=== PATIENT | male | born 1970 | race African-American/Black ===

== ENCOUNTER 2018-09-04 00:20 | Inpatient (IN) ==
[2018-09-04 01:39] LABS: Eosinophils # (auto) 0.18 K/uL (0-0.5); Eosinophils % (auto) 2.5 %; Hematocrit (blood only) 31.5 % (42-52); Hemoglobin 10.5 g/dL (14.0-18.0); Immature Granulocytes # (auto) 0.04 K/uL (0.00-0.02); Immature Granulocytes % (auto) 0.6 %; Lymphocytes # (auto) 1.51 K/uL (1.2-3.4); Lymphocytes % (auto) 21.4 %; Mean Corpuscular Hgb Conc 33.3 g/dL (32-36); Mean Corpuscular Volume 80.6 fL (80-100); Mean Platelet Volume 11.2 fL (7.4-10.4); Monocytes # (auto) 0.95 K/uL (0.11-0.59); Monocytes % (auto) 13.4 %; Neutrophils # (auto) 4.39 K/uL (1.4-6.5); Neutrophils % (auto) 62.1 %; Platelet Count 309 K/uL (130-400); RDW Coefficient of Variation 15.7 % (11.5-14.5); Red Blood Count 3.91 M/uL (4.7-6.1); White Blood Count 7.07 K/uL (4.8-10.8)
[2018-09-04 01:58] LABS: Albumin Level 2.7 gm/dl (3.4-5.0); BUN Creatinine Ratio 13.5 (10-20); Calcium 8.8 mg/dl (8.5-10.1); Creatinine Clr Calc Pharmacy 97.4 ml/min; Est GFR (African American) 73.9; Est GFR (Non-African American) 63.8; Potassium 4.7 mmol/L (3.5-5.1)
[2018-09-04 01:59] LABS: INR 1.9 (0.9-1.1); Partial Thromboplastin Ratio 1.7; Prothrombin Time 18.2 Seconds (9.0-12.0)
[2018-09-04 02:01] LABS: Albumin Globulin Ratio 0.5 (0.9-2); Bilirubin,Total 1.3 mg/dl (0.2-1); Globulin 5.3 gm/dl (2.5-4.0)
[2018-09-04 02:09] LABS: Partial Thromboplastin Time 45.8 Seconds (21.0-31.0)
--- NOTE | 2018-09-04 02:51 | Emergency Department Note ---
History of Present Illness General Chief complaint: Leg Injury/Pain Stated complaint: leg pain Source: patient Mode of arrival: ambulatory Limitations: no limitations History of Present Illness Provider Complaint: + extremity pain and + extremity swelling Onset (ago): 1 week(s) Pain Consistency: + constant Location: + right Current Pain Intensity: 7 Quality: + aching and + sharp Radiation: + none Relieving factors: + immobilization and + elevation Exacerbating factors: + weight bearing, + walking and + palpation Associated symptoms: + denies other symptoms Context: no recent travel, no history of DVT and no history of gout HPI Narrative: This 48-year-old male patient presents emergency department today via BLS ambulance for complaints of right lower extremity swelling. The swelling began last Tuesday. The patient does have an open wound on the right medial taylor which has been present for approximately 1 month. He is currently being worked up for arterial insufficiency and nonhealing wound. The patient states the extremity was not swollen or edematous until Tuesday, but has been progressively worsening. He has not had an ultrasound or CT scan, but did have a arterial Doppler study today which apparently showed findings consistent with arterial insufficiency. The patient denies any discoloration, redness, or purulent drainage. He states he is experiencing some pain and decreased sensation in the third through fifth digits on the right foot. The patient is currently on Coumadin and is taking Bactrim for the wound infection. He does not believe the wound has been cultured. He denies any recent travel, and is not a smoker. Home Medications Home Medications Medication Instructions Recorded Confirmed Type clonidine HCl 0.3 mg tablet 0.3 mg PO BID 06/13/18 09/04/18 History enalapril maleate 10 mg tablet 10 mg PO DAILY 06/13/18 09/04/18 History magnesium oxide 400 mg capsule 400 mg PO BID cap 06/13/18 09/04/18 History nortriptyline 50 mg capsule 100 mg PO HS cap 06/13/18 09/04/18 History perphenazine 4 mg tablet 4 mg PO HS tab 06/13/18 09/04/18 History sertraline 100 mg tablet 100 mg PO HS tab 06/13/18 09/04/18 History tamsulosin 0.4 mg capsule 0.4 mg PO HS cap 06/13/18 09/04/18 History warfarin 10 mg tablet 10 mg PO QPM 06/13/18 09/04/18 History warfarin 2 mg tablet 2 mg PO QPM 06/13/18 09/04/18 History atorvastatin 40 mg PO HS 09/04/18 09/04/18 History mineral oil [Mineral Oil Heavy] 30 ml PO BID 09/04/18 09/04/18 History perphenazine 8 mg PO HS 09/04/18 09/04/18 History sertraline 50 mg PO HS 09/04/18 09/04/18 History sulfamethoxazole-trimethoprim 1 tab PO BID 09/04/18 09/04/18 History [Bactrim DS] Allergies Allergy/AdvReac Type Severity Reaction Status Date / Time No Known Allergies Allergy Unverified 09/04/18 01:53 Past Med/Surg History Medical History History of pulmonary embolism (Resolved) Chronic anticoagulation (Chronic) Lumbar disc herniation (Chronic) Lumbar radiculopathy (Chronic) DVT (deep venous thrombosis) (Resolved) Gastrointestinal hemorrhage with melena (Resolved 03/31/14) Gum hemorrhage (Resolved) Low back pain (Chronic) Nasal fracture (Resolved) Anemia (Acute) Gastroesophageal reflux disease (Acute) History of CVA (cerebrovascular accident) (Acute) Hypertension (Acute) Lumbar radiculopathy, chronic (Acute) OCD (obsessive compulsive disorder) (Acute) Schizophrenia (Acute) Family History Other Family history non-contributory Social History Current Living Situation: Other Current Living Situation Comment: [facility] Feels Safe at Home: Yes Smoking Status: Never smoker Hx Alcohol Use: No Hx Substance Use: No Review of Systems A total of 10 systems reviewed and were otherwise negative Physical Exam Vital Signs: Vital Signs - 24 hr 09/04/18 00:33 09/04/18 02:46 09/04/18 04:28 Temperature 38 C H Temperature Source Oral Sepsis Recent Feve r Within 48 Hours Yes Sepsis New/Unexpla ined Change in Men rodney Status No Sepsis Action Take n by Nursing No Action Required Pulse Rate 79 Pulse Rate [Finger ] 77 75 Pulse Strength Normal Pulse Strength [Fi nger] Respiratory Rate 16 18 16 Respiratory Effort / Characteristics Non-Labored Non-Labored Sponta neous Non-Labored Sponta neous Respiratory Depth Normal Normal Normal Respiratory Patter n Regular Blood Pressure 122/72 Blood Pressure [Le ft Arm] 134/77 137/94 Blood Pressure Alexa n 88 Blood Pressure Alexa n [Left Arm] 96 108 Blood Pressure Pos ition Lying Pulse Oximetry 99 100 99 Oxygen Delivery Me thod Room Air Room Air Room Air 09/04/18 05:58 Temperature Temperature Source Sepsis Recent Feve r Within 48 Hours Sepsis New/Unexpla ined Change in Men rodney Status Sepsis Action Take n by Nursing Pulse Rate Pulse Rate [Finger ] 77 Pulse Strength Pulse Strength [Fi nger] Normal Respiratory Rate 16 Respiratory Effort / Characteristics Non-Labored Respiratory Depth Normal Respiratory Patter n Regular Blood Pressure Blood Pressure [Le ft Arm] 149/81 H Blood Pressure Alexa n Blood Pressure Alexa n [Left Arm] 103 Blood Pressure Pos ition Pulse Oximetry Oxygen Delivery Me thod Physical Exam: VITALS: Vitals are noted on the nurse's note and reviewed by myself. Vital signs stable. GENERAL: This is a 48-year-old obese black male, in no acute distress, nondiaphoretic, well-developed well-nourished. SKIN: Significant edema and induration of the posterior right calf. This measures approximately 12 cm by 5 cm. There is no erythema. There is an open wound on the anterior medial taylor with no purulent drainage or surrounding erythema. The skin was otherwise without rashes, erythema, edema, or bruising. There is no tenting of the skin. Capillary reflex less than 2 seconds. HEAD: Normocephalic atraumatic. NECK: Supple without nuchal rigidity. No lymphadenopathy. No thyromegaly. Cervical spine is nontender. No JVD. HEART: Regular rate and rhythm without murmurs gallops or rubs. LUNGS: Clear to auscultation bilaterally without wheezes, rales or rhonchi. No dullness to percussion. No retractions or accessory muscle use. ABDOMEN: Positive bowel sounds x 4. Normal tympanic percussion. Soft, nontende r, without masses or organomegaly. Watson sign negative. No guarding or rebound tenderness. MUSCULOSKELETAL: No muscle atrophy, erythema, or edema noted. Full range of motion without joint tenderness in all extremities. No tenderness to palpation. Normal gait. Strength 5/5 throughout. NEURO: Patient was alert and oriented to person place and time. Normal sensation to light and sharp touch, specifically in all of the digits of the right lower extremity. Deep tendon reflexes 2+ throughout. No focal neurological deficits. Course The patient was seen and evaluated as above. IV access obtained, labs drawn. Ultrasound performed and reviewed by myself and radiologist as above. Labs reviewed by myself. I discussed the findings with the patient at bedside. I did recommend an MRI based on ultrasound findings. MRI performed reviewed by myself and radiologist as above. I discussed the case with my attending. Initiated vancomycin and Zosyn IV. I discussed the case with Dr. Lewis, [facility] hospitalist. She requested surgical consult. Consulted with Dr. Luz, general surgery. He recommends Ortho consult. I spoke with Dr. Bhakta. He agrees to see and evaluate the patient. Advised him that Dr. Luz advised he may consult general surgery if necessary. Please see their dictation regarding ongoing management care of this patient. Administered Medications Gadobutrol (Gadavist 65ml) 13 ml IV ONCE PRN PRN Reason: Interaction Checking Stop: 09/08/18 04:11 Last Admin: 09/04/18 04:13 Dose: 13 ml Documented by: [id number] Vancomycin HCl 2,750 mg/ (Sodium Chloride) 555 mls @ 200 mls/hr IV NOW ONE Stop: 09/04/18 07:58 Last Admin: 09/04/18 05:54 Dose: 200 mls/hr Documented by: [id number] Discontinued Medications Piperacillin Sod/Tazobactam Sod (Zosyn) 4.5 gm in 120 mls @ 240 mls/hr IV NOW ONE Stop: 09/04/18 05:45 Last Infusion: 09/04/18 06:22 Dose: 0 mls/hr Documented by: [id number] Admin: 09/04/18 05:35 Dose: 240 mls/hr Documented by: [id number] Medical Decision Making Differential Diagnosis + herpes zoster, + gout, + cellulitis, + superficial thrombophlebitis, + deep venous thrombosis of upper extremity, + lower extremity edema, + deep vein thrombosis, + muscular strain, + fracture, + dislocation, + joint effusion, + infection, + soft tissue injury and + vascular compromise abscess, hematoma, necrosis, malignancy, and others Medical Records Attestation: I reviewed the patient's medical records. Home Medications Current Medication List: was personally reviewed by me Laboratory Data Attestation: I reviewed the patient's lab results. No leukocytosis, thrombocytopenia. The patient is anemic with a hemoglobin of 10.5 and hematocrit of 31.5. INR 1.9. Renal, hepatic function, and electrolytes without significant abnormality. Mild hyponatremia of 131. Lactate 0.9. Result diagrams: 09/04/18 01:20 09/04/18 01:20 Lab Results 09/04/18 09/04/18 09/04/18 Range/Units 01:20 01:20 01:20 WBC 7.07 (4.8-10.8) K/uL RBC 3.91 L (4.7-6.1) M/uL Hgb 10.5 L (14.0-18.0) g/dL Hct 31.5 L (42-52) % MCV 80.6 (80-100) fL MCH 26.9 (25-34) pg MCHC 33.3 (32-36) g/dL RDW Std Deviation 46.0 (36.4-46.3) fL RDW Coeff of Andrés 15.7 H (11.5-14.5) % Plt Count 309 (130-400) K/uL MPV 11.2 H (7.4-10.4) fL Immature Gran % (Auto) 0.6 % Neut % (Auto) 62.1 % Lymph % (Auto) 21.4 % Webb % (Auto) 13.4 % Eos % (Auto) 2.5 % Baso % (Auto) 0.0 % Immature Gran # (Auto) 0.04 H (0.00-0.02) K/uL Neut # (Auto) 4.39 (1.4-6.5) K/uL Lymph # (Auto) 1.51 (1.2-3.4) K/uL Webb # (Auto) 0.95 H (0.11-0.59) K/uL Eos # (Auto) 0.18 (0-0.5) K/uL Baso # (Auto) 0.00 (0-0.2) K/uL PT 18.2 H (9.0-12.0) Seconds INR 1.9 H (0.9-1.1) APTT 45.8 H* (21.0-31.0) Seconds PTT Ratio 1.7 Sodium 131 L (136-145) mmol/L Potassium 4.7 (3.5-5.1) mmol/L Chloride 101 (98-107) mmol/L Carbon Dioxide 27 (21-32) mmol/L Anion Gap 3.0 (3-11) BUN 18 (7-18) mg/dl Creatinine 1.32 (0.6-1.4) mg/dl Est Cr Clr Drug Dosing 97.4 ml/min Est GFR ( Amer) 73.9 Est GFR (Non-Af Amer) 63.8 BUN/Creatinine Ratio 13.5 (10-20) Glucose 89 (70-99) mg/dl Lactate (0.4-2.0) mmol/L Calcium 8.8 (8.5-10.1) mg/dl Total Bilirubin 1.3 H (0.2-1) mg/dl AST 40 H (15-37) U/L ALT 36 (12-78) U/L Alkaline Phosphatase 72 (45-117) U/L Total Protein 8.0 (6.4-8.2) gm/dl Albumin 2.7 L (3.4-5.0) gm/dl Globulin 5.3 H (2.5-4.0) gm/dl Albumin/Globulin Ratio 0.5 L (0.9-2) 09/04/18 Range/Units 01:22 WBC (4.8-10.8) K/uL RBC (4.7-6.1) M/uL Hgb (14.0-18.0) g/dL Hct (42-52) % MCV (80-100) fL MCH (25-34) pg MCHC (32-36) g/dL RDW Std Deviation (36.4-46.3) fL RDW Coeff of Andrés (11.5-14.5) % Plt Count (130-400) K/uL MPV (7.4-10.4) fL Immature Gran % (Auto) % Neut % (Auto) % Lymph % (Auto) % Webb % (Auto) % Eos % (Auto) % Baso % (Auto) % Immature Gran # (Auto) (0.00-0.02) K/uL Neut # (Auto) (1.4-6.5) K/uL Lymph # (Auto) (1.2-3.4) K/uL Webb # (Auto) (0.11-0.59) K/uL Eos # (Auto) (0-0.5) K/uL Baso # (Auto) (0-0.2) K/uL PT (9.0-12.0) Seconds INR (0.9-1.1) APTT (21.0-31.0) Seconds PTT Ratio Sodium (136-145) mmol/L Potassium (3.5-5.1) mmol/L Chloride (98-107) mmol/L Carbon Dioxide (21-32) mmol/L Anion Gap (3-11) BUN (7-18) mg/dl Creatinine (0.6-1.4) mg/dl Est Cr Clr Drug Dosing ml/min Est GFR ( Amer) Est GFR (Non-Af Amer) BUN/Creatinine Ratio (10-20) Glucose (70-99) mg/dl Lactate 0.9 (0.4-2.0) mmol/L Calcium (8.5-10.1) mg/dl Total Bilirubin (0.2-1) mg/dl AST (15-37) U/L ALT (12-78) U/L Alkaline Phosphatase (45-117) U/L Total Protein (6.4-8.2) gm/dl Albumin (3.4-5.0) gm/dl Globulin (2.5-4.0) gm/dl Albumin/Globulin Ratio (0.9-2) Imaging Data Radiologist's Impression: US VENOUS RIGHT LOWER EXTREMITY: No DVT in the right lower extremity. 12 x 5 x 10 cm complex, heterogeneous, avascular lesion/fluid collection in the right posterior calf which appears to be intramuscular. DDX hematoma, abscess, other lesion. Query mild surrounding edema. Correlate and consider follow-up/further workup, MRI if indicated. Radiologist: Elder Lewis M.D. MRI RIGHT TIB/FIB: Large cystic mass involving the medial gastrocnemius muscle with enhancing periphery. Multiple airfluid levels are seen within the cystic mass. Findings are most compatible with hematoma in the absence of any clinical concern for infection. Muscle necrosis would also be in the differential, alternatively No marrow signal alterations. Ankle tendons are unremarkable. Neurovascular structures are unremarkable. Subcutaneous edema is seen along the medial/posterior aspect of the distal lower extremity. Radiologist: Yaw Smith M.D. Study ready at 04:35 and initial results transmitted at 05:06 Blood Pressure Blood Pressure Findings: Normal blood pressure MDM Narrative This 48-year-old male patient presents emergency department today complaining of progressively worsening right lower extremity/calf edema and tenderness. The patient does have an open wound on the right lower extremity which is been present for approximately 1 month. The calf edema and tenderness has been progressively worsening over 1 week. The patient was initially febrile here in the emergency department with a temp of 38 C. He does not have a white blood cell count. Initial ultrasound performed to rule out DVT. This was negative for DVT, but concerning for a lesion/fluid collection in the right posterior calf which appears to be intramuscular. MRI performed to evaluate for pyomyositis. MRI was concerning for hematoma versus abscess. Because of the patient's wound and fever, I am highly suspicious for abscess. I discussed the case with the hospitalist, Dr. Lewis. She did agree to admit, but requested surgical consult. I contacted Dr. Luz and was told to consult with orthopedics. I consulted with Dr. Bhakta, who did agree to see and evaluate the patient. The patient was given vancomycin and Zosyn and will be further evaluated by the inpatient team. Please see their dictation regarding ongoing management care of this patient. The chart was completed utilizing [employer] Speech voice recognition software. Grammatical errors, random word insertions, pronoun errors, and incomplete sentences are an occasional consequence of this system due to software limitations, ambient noise, and hardware issues. Any formal questions or concerns about the content, text, or information contained within the body of this dictation should be directly addressed to the provider for clarification. Impression & Plan Pyomyositis Discharge Plan Visit Data Chief Complaint: Leg Injury/Pain Stated Complaint: leg pain ED Provider: Miranda Oswald ED Midlevel Provider: Tia Gil Discharge Problem: Pyomyositis Patient Disposition: Being Evaluated by Hospitalist Forms Stand Alone Forms: My [facility] Prescriptions Prescriptions: No Action clonidine HCl 0.3 mg tablet 0.3 mg PO BID RF: 0 enalapril maleate 10 mg tablet 10 mg PO DAILY RF: 0 magnesium oxide 400 mg capsule 400 mg PO BID RF: 0 nortriptyline 50 mg capsule 100 mg PO HS RF: 0 perphenazine 4 mg tablet 4 mg PO HS RF: 0 sertraline [Zoloft] 100 mg tablet 100 mg PO HS RF: 0 tamsulosin 0.4 mg capsule 0.4 mg PO HS RF: 0 warfarin 10 mg tablet 10 mg PO QPM RF: 0 warfarin [Coumadin] 2 mg tablet 2 mg PO QPM RF: 0 atorvastatin 40 mg Tablet 40 mg PO HS RF: 0 sertraline 50 mg Tablet 50 mg PO HS RF: 0 mineral oil [Mineral Oil Heavy] Oil 30 ml PO BID RF: 0 perphenazine 8 mg Tablet 8 mg PO HS RF: 0 sulfamethoxazole-trimethoprim [Bactrim DS] 800-160 mg Tablet 1 tab PO BID RF: 0 Referrals Referrals: Claudia JOHNSON [Primary Care Provider] -
[2018-09-04] MEDS ORDERED: GADOBUTROL 65ML VIAL IV PRN (04:12)
[2018-09-04] MEDS ORDERED: VANCOMYCIN CONSULT ACTIVE PRN ×2 (05:12→09:21)
[2018-09-04] MEDS ORDERED: VANCOMYCIN HCL 2,750 MG in SODIUM CHLORIDE 0.9% 500 ML IV ONE (05:12)
[2018-09-04] MEDS ORDERED: PIPERACILLIN/TAZOBACTAM 4.5 GM/120 ML BAG IV ONE (05:16)
[2018-09-04] MEDS ORDERED: PIPERACILL/TAZOBAC CONSULT ACTIVE PRN ×2 (05:16→09:21)
--- NOTE | 2018-09-04 06:31 | History & Physical Report ---
Date of Service September 04, 2018 Assessment & Plan (1) Pyomyositis: Patient with large fluid collection in right calf noted on contrast MRI - concern for hematoma vs infection/abscess. Patient is on chronic anticoagulation with Coumadin. INR is therapeutic at 1.9. Platelets normal. Patient with open wound on medial portion of right calf. Tm=38 in ER. Patient is hemodynamically stable and non-toxic in appearance. Was on Bactrim on arrival for treatment of LE wound -Admit to medical floor -Check CK, blood cultures x 2 sets -Consult Orthopedic Surgery for possible drainage or aspiration -Neurovascular checks q 4 hours -Pain control with Tylenol, OxyIR PRN -Hold PO Bactrim -Vancomycin and Zosyn for empiric coverage Present on Admission?: Yes (2) Chronic anticoagulation: Patient with history of DVT/PE, on chronic anticoagulation with Coumadin. INR = 1.9 today. ?if collection in leg is a hematoma -Hold Coumadin for now -INR q AM Present on Admission?: Yes (3) History of CVA (cerebrovascular accident): Patient with remote history of CVA. -Continue Atorvastatin (4) Hypertension: Blood pressure well controlled at present -Continue Enalapril -Continue Clonidine -Continue to monitor (5) Schizophrenia: Patient oriented and appropriate. -Continue Perphenazine -Continue Sertraline -Continue Nortriptyline qHS F/E/N - NSS at 80mL/hr x 1 bag, monitor electrolytes and replete as needed, continue PO magnesium, NPO for now in case of surgical intervention Ppx - Patient on Coumadin anticoagulation. No chemo ppx due to possible hematoma. No SCDs/TEDS due to diagnosis of arterial insufficiency Code - Full Dispo - Admit to medical floor History of Present Illness Chief Complaint: leg pain Primary Care Provider: [facility] Mera Hickman is a pleasant 48yo AA male, inmate at [facility] presenting with RLE pain. The patient states that he received a steroid injection in his back last Tuesday. On Tuesday he developed pain and swelling in his calf which progressed into Tuesday. He denies fevers/chills/nausea/vomiting/malaise. His pain is presently 7/10 located in his right calf. He has a non-healing wound on the medial portion of his calf. Also complaining of pain, numbness and tingling on the 3rd - 5th toe on his right foot. Patient denies trauma to the leg. No IVDU. No prior infection. ER Course: Vancomycin, Zosyn Allergies Allergy/AdvReac Type Severity Reaction Status Date / Time No Known Allergies Allergy Unverified 09/04/18 01:53 Home Medications Home Medications Medication Instructions Recorded Confirmed Type clonidine HCl 0.3 mg tablet 0.3 mg PO BID 06/13/18 09/04/18 History enalapril maleate 10 mg tablet 10 mg PO DAILY 06/13/18 09/04/18 History magnesium oxide 400 mg capsule 400 mg PO BID cap 06/13/18 09/04/18 History nortriptyline 50 mg capsule 100 mg PO HS cap 06/13/18 09/04/18 History perphenazine 4 mg tablet 4 mg PO HS tab 06/13/18 09/04/18 History sertraline 100 mg tablet 100 mg PO HS tab 06/13/18 09/04/18 History tamsulosin 0.4 mg capsule 0.4 mg PO HS cap 06/13/18 09/04/18 History warfarin 10 mg tablet 10 mg PO QPM 06/13/18 09/04/18 History warfarin 2 mg tablet 2 mg PO QPM 06/13/18 09/04/18 History atorvastatin 40 mg PO HS 09/04/18 09/04/18 History mineral oil [Mineral Oil Heavy] 30 ml PO BID 09/04/18 09/04/18 History perphenazine 8 mg PO HS 09/04/18 09/04/18 History sertraline 50 mg PO HS 09/04/18 09/04/18 History sulfamethoxazole-trimethoprim 1 tab PO BID 09/04/18 09/04/18 History [Bactrim DS] Past Med/Surg History Medical History History of pulmonary embolism (Resolved) Chronic anticoagulation (Chronic) Lumbar disc herniation (Chronic) Lumbar radiculopathy (Chronic) DVT (deep venous thrombosis) (Resolved) Gastrointestinal hemorrhage with melena (Resolved 03/31/14) Gum hemorrhage (Resolved) Low back pain (Chronic) Nasal fracture (Resolved) Anemia (Acute) Gastroesophageal reflux disease (Acute) History of CVA (cerebrovascular accident) (Acute) Hypertension (Acute) Lumbar radiculopathy, chronic (Acute) OCD (obsessive compulsive disorder) (Acute) Schizophrenia (Acute) Family History Other Family history non-contributory Social History Current Living Situation: Other Current Living Situation Comment: [facility] Feels Safe at Home: Yes Smoking Status: Never smoker Hx Alcohol Use: No Hx Substance Use: No Review of Systems All systems reviewed & are unremarkable except as noted in HPI & below Physical Exam Vital Signs (Past 24 Hours): Last Vital Signs Temp 38 C H 09/04/18 00:33 Pulse 77 09/04/18 05:58 Resp 16 09/04/18 05:58 BP 149/81 H 09/04/18 05:58 Pulse Ox 99 09/04/18 04:28 Physical Exam: General: obese male resting comfortably, NAD, non-toxic in appearance, AA&O x 4 Skin: warm, dry HEENT: NC/AT, PERRL, EOMI, anicteric sclera, conjunctiva without injection, external ear normal to inspection and nontender, nares patent, moist mucus membranes, dentition intact, no oropharyngeal lesions, neck supple, trachea midline, no LAD, no thyromegaly, no JVD Heart: +S1/S2, regular, no m/r/g Lungs: equal air entry bilaterally, no rales/rhonchi/wheezes Abd: +BS, soft, NT/ND, no masses/organomegaly/ascites Ext: warm, 2+ pulses in UE/LE bilaterally, no clubbing/cyanosis, thickened and shiny skin of bilateral shins, RLE with firm collection, tender to palpation, dressing in place over wound, c/d/i. Diminished sensation on 3-5th toes, strength intact Neuro: nonfocal, patient AA&O x 4, speech intact, no facial droop, moving all extremities on command with equal strength 5/5 Results & Data Laboratory Results Lab Results 09/04/18 09/04/18 09/04/18 Range/Units 01:20 01:20 01:20 WBC 7.07 (4.8-10.8) K/uL RBC 3.91 L (4.7-6.1) M/uL Hgb 10.5 L (14.0-18.0) g/dL Hct 31.5 L (42-52) % MCV 80.6 (80-100) fL MCH 26.9 (25-34) pg MCHC 33.3 (32-36) g/dL RDW Std Deviation 46.0 (36.4-46.3) fL RDW Coeff of Andrés 15.7 H (11.5-14.5) % Plt Count 309 (130-400) K/uL MPV 11.2 H (7.4-10.4) fL Immature Gran % (Auto) 0.6 % Neut % (Auto) 62.1 % Lymph % (Auto) 21.4 % [place] % (Auto) 13.4 % Eos % (Auto) 2.5 % Baso % (Auto) 0.0 % Immature Gran # (Auto) 0.04 H (0.00-0.02) K/uL Neut # (Auto) 4.39 (1.4-6.5) K/uL Lymph # (Auto) 1.51 (1.2-3.4) K/uL [place] # (Auto) 0.95 H (0.11-0.59) K/uL Eos # (Auto) 0.18 (0-0.5) K/uL Baso # (Auto) 0.00 (0-0.2) K/uL PT 18.2 H (9.0-12.0) Seconds INR 1.9 H (0.9-1.1) APTT 45.8 H* (21.0-31.0) Seconds PTT Ratio 1.7 Sodium 131 L (136-145) mmol/L Potassium 4.7 (3.5-5.1) mmol/L Chloride 101 (98-107) mmol/L Carbon Dioxide 27 (21-32) mmol/L Anion Gap 3.0 (3-11) BUN 18 (7-18) mg/dl Creatinine 1.32 (0.6-1.4) mg/dl Est Cr Clr Drug Dosing 97.4 ml/min Est GFR ( Amer) 73.9 Est GFR (Non-Af Amer) 63.8 BUN/Creatinine Ratio 13.5 (10-20) Glucose 89 (70-99) mg/dl Lactate (0.4-2.0) mmol/L Calcium 8.8 (8.5-10.1) mg/dl Total Bilirubin 1.3 H (0.2-1) mg/dl AST 40 H (15-37) U/L ALT 36 (12-78) U/L Alkaline Phosphatase 72 (45-117) U/L Total Protein 8.0 (6.4-8.2) gm/dl Albumin 2.7 L (3.4-5.0) gm/dl Globulin 5.3 H (2.5-4.0) gm/dl Albumin/Globulin Ratio 0.5 L (0.9-2) 09/04/18 Range/Units 01:22 WBC (4.8-10.8) K/uL RBC (4.7-6.1) M/uL Hgb (14.0-18.0) g/dL Hct (42-52) % MCV (80-100) fL MCH (25-34) pg MCHC (32-36) g/dL RDW Std Deviation (36.4-46.3) fL RDW Coeff of Andrés (11.5-14.5) % Plt Count (130-400) K/uL MPV (7.4-10.4) fL Immature Gran % (Auto) % Neut % (Auto) % Lymph % (Auto) % [place] % (Auto) % Eos % (Auto) % Baso % (Auto) % Immature Gran # (Auto) (0.00-0.02) K/uL Neut # (Auto) (1.4-6.5) K/uL Lymph # (Auto) (1.2-3.4) K/uL [place] # (Auto) (0.11-0.59) K/uL Eos # (Auto) (0-0.5) K/uL Baso # (Auto) (0-0.2) K/uL PT (9.0-12.0) Seconds INR (0.9-1.1) APTT (21.0-31.0) Seconds PTT Ratio Sodium (136-145) mmol/L Potassium (3.5-5.1) mmol/L Chloride (98-107) mmol/L Carbon Dioxide (21-32) mmol/L Anion Gap (3-11) BUN (7-18) mg/dl Creatinine (0.6-1.4) mg/dl Est Cr Clr Drug Dosing ml/min Est GFR ( Amer) Est GFR (Non-Af Amer) BUN/Creatinine Ratio (10-20) Glucose (70-99) mg/dl Lactate 0.9 (0.4-2.0) mmol/L Calcium (8.5-10.1) mg/dl Total Bilirubin (0.2-1) mg/dl AST (15-37) U/L ALT (12-78) U/L Alkaline Phosphatase (45-117) U/L Total Protein (6.4-8.2) gm/dl Albumin (3.4-5.0) gm/dl Globulin (2.5-4.0) gm/dl Albumin/Globulin Ratio (0.9-2) Diagnostic Findings MRI RIGHT TIB/FIB WITH GABRIELA: Large cystic mass involving the medical gastrocnemius muscle with enhancing peripheray. Multiple air-fluid levels are seen within the cystic mass. Findings most compatable with hematoma in the absence of any clinical concern for infection. Muscle necrosis would also be in the differential. Code Status & VTE Plan Code Status FULL (1) Hypertension Hypertension type: essential hypertension Qualified Code(s): I10 - Essential (primary) hypertension
--- NOTE | 2018-09-04 07:08 | Ultrasound Report ---
RIGHT LOWER EXTREMITY VENOUS DOPPLER HISTORY: Right leg edema, pain COMPARISON STUDY: None. FINDINGS: There is normal compressibility, flow, and augmentation within the right lower extremity de ep venous system. There is a 12 x 5 x 10 cm complex, heterogeneous, avascular lesion/fluid collection within the right calf which appears to be intramuscular. Mild surrounding edema. IMPRESSION: No DVT within the right lower extremity. A 12 x 5 x 10 cm complex avascular intramuscular fluid colle ction within the right calf. This favors a hematoma. An abscess could also have a similar appearance. Electronically signed by: Callum Paul M.D. 09/04/2018 7:07 AM
--- NOTE | 2018-09-04 07:26 | Magnetic Resonance Report ---
MR lower leg RT wo/w con HISTORY: Right leg edema, lesion noted on US, ?abscess TECHNIQUE: Multiplanar multisequence MRI of the right leg was performed both before and after the int ravenous administration of contrast. COMPARISON STUDY: Right leg venous doppler 09/04/2018. FINDINGS: There is redemonstration of a 12.5 x 8.7 x 5.9 cm heterogeneous collection within the media l gastrocnemius muscle this appears to demonstrate fluid/hematocrit levels with peripheral enhancemen t. Therefore, this favors a hematoma. There is associated edema within the majority of the medial gas trocnemius muscle and distal psoas muscle. There is subcutaneous edema within the calf. The Achilles tendon appears grossly intact. Normal marrow signal intensity seen throughout the visualized osseous structures. No fracture or dislocation. There is also mild edema and a small peripherally enhancing c ollection within the tibialis anterior muscle measuring 12 mm. This is similar to the gastrocnemius c ollection and also favors a small intramuscular hematoma. IMPRESSION: 1. Redemonstration of a 12.5 x 8.7 x 5.9 cm heterogeneous collection within the medial gastrocnemius muscle which demonstrates peripheral enhancement. Therefore, this favors a hematoma. An abscess or un derlying mass is considered less likely but not entirely excluded. Follow-up ultrasound in one to 2 m [facility] is recommended to ensure resolution. 2. There is also a 12 mm similar appearing peripherally enhancing collection within the tibialis ante rior muscle which also favors an intramuscular hematoma. Electronically signed by: Callum Paul M.D. 09/04/2018 7:25 AM
[2018-09-04] MEDS ORDERED: PHYTONADIONE 10 MG in SODIUM CHLORIDE 0.9% 50 ML IV ONE (08:00)
[2018-09-04] MEDS ORDERED: DOCUSATE SODIUM 100 MG CAP PO PRN (09:21)
[2018-09-04] MEDS ORDERED: OXYCODONE HCL IR 5 MG TAB (IMMEDIATE RELEASE) PO PRN (09:21)
[2018-09-04] MEDS ORDERED: ONDANSETRON INJ 2 MG/ML 2 ML VIAL IV PRN ×3 (09:21→21:43)
[2018-09-04] MEDS ORDERED: SODIUM CHLORIDE 0.9% 1000ML 1,000 ML IV SCH ×2 (09:21→21:45)
[2018-09-04] MEDS ORDERED: KONDREMUL 30ML UDP PO SCH (09:21)
[2018-09-04 10:27] LABS: Magnesium 2.2 mg/dl (1.8-2.4); Phosphorus 3.3 mg/dl (2.5-4.9)
--- NOTE | 2018-09-04 10:42 | Pharmacy Report ---
Pharmacy Abx Dose Short Note - Date of Service September 04, 2018 - Assessment & Plan Assessment * Mr Hickman is a 48 year old incarcerated gentleman receiving IV Vancomycin/Zosyn for treatment of myositis (abscess vs hematoma). * Patient has been receiving Bactrim as an outpatient for a LE wound (present for approx one month). Mr Hickman has a history of DVT/PE and remote history of CVA. * Labs on admission: WBC 7, lactic acid 0.9, SCr 1.32. Temp was elevated, 38C. * Blood cultures are pending. * LE MRI favors intramuscular hematoma vs abscess. Plan Vancomycin * Loading dose: Vanc 2750mg (~20mg/kg) IV x1 dose in ED, then: * Vancomycin 2000mg (~12.5mg/kg) IV q12h * a less aggressive dose/dosing interval was selected for BMI ~49kg/m2 and the likelihood of vanc accumulation in the obese pt population. * Patient's estimated p'kinetic parameters (based on CrCL ~ 97mL/min): * Vd ~ 0.54L/kg Ke ~ 0.085/hr t1/2 ~ 8.2hr * Goal trough level for SSTI: 15 to 20 mcg/mL, pending C/S * Trough level ordered for: 09/06 prior to the 4th maintenance dose to assess steady-state level Zosyn 4.5gm IV x1 dose over 30min, then 4.5gm IV q8h (4-hr infusion) * aggressive regimen selected in the setting of BMI > 35kg/m2 Pharmacy will continue to follow and will adjust dose/frequency as necessary. Thank you.
[2018-09-04] MEDS: MAGNESIUM OXIDE 400 MG TAB PO SCH (10:57)
[2018-09-04] MEDS: KONDREMUL 480ML PO SCH (10:58)
[2018-09-04] MEDS: ENALAPRIL MALEATE 10 MG TAB PO SCH (10:59)
[2018-09-04] MEDS ORDERED: TRANEXAMIC ACID IV SCH (11:00)
[2018-09-04] MEDS ORDERED: TRANEXAMIC ACID 1,000 MG in 0.9 % SODIUM CHLORIDE 100 ML IV SCH (11:00)
[2018-09-04] MEDS: PIPERACILLIN/TAZOBACTAM 4.5 GM in DEXTROSE 5% 100 ML IV SCH ×2 (11:00→18:32)
[2018-09-04] MEDS: ACETAMINOPHEN 325 MG TAB PO PRN (11:05)
--- NOTE | 2018-09-04 11:32 | Progress Note ---
DATE: 09/04/2018 CHIEF COMPLAINT: Right calf pain. HISTORY OF PRESENT ILLNESS: I was consulted to see the patient by the ER personnel for evaluation of right calf pain and swelling. The patient had developed a right lower extremity venous stasis ulceration about 1 month ago. [facility]. The patient is an inmate. About 1 week ago, he had a lumbar epidural steroid injection. He is on chronic anticoagulation. He takes Coumadin. His Coumadin was stopped and apparently he was bridged with Lovenox. His last dose of Lovenox was Tuesday. Beginning 1 week ago around the time when he had the epidural steroid injection, he has developed atraumatic progressive right calf pain and swelling. He did not have any injury. He has not had this before. He does not have a history of cancer, diabetes or other infections including MRSA. He rates his pain as 7/10 and it makes him difficult for him to walk. To me, he denied any numbness or tingling, fever, chills, sweats, dysuria, nausea, vomiting, cough, sore throat. He is being admitted by medicine. Antibiotics have been started. Review of his data from the [facility] reveals that he has been afebrile; however, he has a temp of 38 last evening in the Emergency Room. PAST MEDICAL HISTORY: Significant for history of stroke, but it is not clear from the patient how this affected him. He mentioned that he had been found passed out and he had trouble with his heart, lungs and his left side. It is unclear whether he has had any lingering after effects from the stroke. He has had a DVT and PE and because of that is on chronic Coumadin. He has a history of schizophrenia and high blood pressure, sciatica. ALLERGIES: He denies any allergies. PAST SURGICAL HISTORY: He has never had surgery before. MEDICATIONS: Medications were noted on the chart and include Bactrim which he was taking for his leg wound, sertraline, perphenazine, atorvastatin, Coumadin, tamsulosin, nortriptyline, enalapril, clonidine. SOCIAL HISTORY: He is an inmate and does not smoke or drink. His vital signs have been stable in the Emergency Room. LABORATORY DATA: His white count is 7, hemoglobin 11, hematocrit 32, platelet count is 309. His INR today is 1.7. PRP is noted. Sodium is low. Total bilirubin and AST are both high slightly. Albumin is low. Lactate is 0.9, within normal limits. Ultrasound shows a large calf fluid collection. An MRI has been done. There is a large peripherally enhancing but not centrally enhancing lesion in the right gastrocnemius muscle consistent with a collection of fluid, which could be hematoma or abscess. This does not look like a neoplasm. It is a complex collection. Reports are noted. PHYSICAL EXAMINATION: He has a 2.5 cm granulating lesion full thickness through the skin down to the subcutaneous tissues with good granulating base at about the mid portion of the leg medial side. The lower leg shows chronic venous stasis changes. Dorsalis pedis and posterior tibial pulses are both 2+. He reports intact sensation throughout the foot. He can wiggle his toes with 5/5 strength. There is no pain with passive movement of his toes. He does have pain with movement of the ankle causing pain into the calf. He has normal plantar flexion and dorsiflexion strength of the ankle, but his range of motion of the ankle was limited by his calf discomfort. There is large swelling of the posterior and especially posteromedial calf with a firmness of the tissue consistent with pressure. The anterior and lateral side of the leg are soft. There is no purulent drainage and really no notable erythema or induration present. He reports no pain in his knee and has good knee movement without any knee tenderness or swelling in the right knee. The right calf is visibly larger than the left. IMPRESSION: Schizophrenia, history of stroke, DVT and PE, chronic anticoagulation and a right calf lesion. PLAN: My findings are discussed with the patient. I think that he likely has a large hematoma in the right calf. This may have developed because of either his Coumadin or the usage of Lovenox. Other possibilities would include a soft tissue neoplasm, which I think is unlikely given the characteristics of a fluid-filled collection, sudden onset and peripherally enhancing. It is possible that this could be primarily an infection or could have become secondarily infected. The options are to leave things as is, which I do not think is a good option based upon his symptoms. Aspiration with radiology is a consideration, I discussed with him. We talked about the pros and cons. At this stage, the fluid is likely loculated and probably not able to be adequately drained with a needle. Therefore, I think that surgical evacuation is a good reasonable option. He agrees to proceed and informed consent was obtained. He has no issues with bleeding, infections or MRSA. He does not have cancer or diabetes. I have spoken with Dr. Pace about the plan. Consult the wound care nurse for his venous stasis ulcer. Administer 10 mg of IV vitamin K now. Check PT/INR at 3:00 and plan for surgery this afternoon if the INR is within acceptable limits. Plan would be for an incision on the posteromedial calf with evacuation of the fluid along with cultures. He would stay in the hospital. I would likely close this over a drain, would likely consider giving him some TXA. N.p.o. He is on antibiotics.
[2018-09-04 12:24] LABS: INR 1.5 (0.9-1.1); Prothrombin Time 14.6 Seconds (9.0-12.0)
[2018-09-04 12:35] LABS: Partial Thromboplastin Ratio 1.4; Partial Thromboplastin Time 38.7 Seconds (21.0-31.0)
[2018-09-04 16:21] LABS: INR 1.3 (0.9-1.1); Partial Thromboplastin Ratio 1.3
[2018-09-04] MEDS ORDERED: DexMEDEtomidine HCL IV 100 MCG/ML VIAL ONE (17:48)
[2018-09-04] MEDS ORDERED: LABETALOL HCL IV 5 MG/ML 20ML IV PRN (17:51)
[2018-09-04] MEDS ORDERED: HYDROmorphone INJ 1 MG/ML SYRINGE IV PRN (17:51)
[2018-09-04] MEDS ORDERED: ATROPINE SULFATE 0.1 MG/ML 10ML SYR IV PRN (17:51)
[2018-09-04] MEDS ORDERED: fentaNYL citrate 100 MCG/2 ML VIAL IV PRN (17:51)
[2018-09-04] MEDS ORDERED: PHENYLEPHRINE 100MCG/ML 5ML SYR IV PRN (17:51)
[2018-09-04] MEDS ORDERED: ePHEDrine sulfate 50 MG/ML AMP IV PRN (17:51)
[2018-09-04] MEDS ORDERED: LIDOCAINE HCL 2% 2 ML VIAL/AMP(20MG/ML) INFIL ONE (17:52)
[2018-09-04] MEDS ORDERED: PROPOFOL IV EMULSION 10 MG/ML 20 ML VIAL IV ONE (17:52)
[2018-09-04] MEDS ORDERED: ONDANSETRON INJ 2 MG/ML 2 ML VIAL ONE (17:52)
[2018-09-04] MEDS ORDERED: MIDAZOLAM HCL 1 MG/ML 2ML VIAL ONE (17:53)
[2018-09-04] MEDS ORDERED: fentaNYL citrate 100 MCG/2 ML VIAL ONE ×3 (17:53→20:28)
[2018-09-04] MEDS ORDERED: CEFAZOLIN 3000MG 72.5 ML IV ONE (17:57)
[2018-09-04] MEDS ORDERED: VANCOMYCIN HCL 1,750 MG in SODIUM CHLORIDE 0.9% 500 ML IV SCH (18:00)
[2018-09-04] MEDS ORDERED: CEFAZOLIN 3000MG/72.5 ML BAG IV ONE (18:04)
[2018-09-04] MEDS ORDERED: GELATIN SPONGE SZ 100 ONE (18:08)
[2018-09-04] MEDS ORDERED: THROMBIN FOR SOLN 20000 UNIT KIT ONE (18:09)
--- NOTE | 2018-09-04 18:09 | Anesthesiology Consultation ---
Date of Service September 04, 2018 Assessment & Plan (1) Encounter for pre-operative examination: Chart Review Chart Review: Acceptable Risk for Surgery and Patient NOT seen in Pre Admission Testing Consults Requested none ASA ASA3 NPO Date Last Intake of Fluids: 09/03/18 Time Last Intake of Fluids: 20:00 Last Intake of Fluids Comment: sips with pills around 1100 Date Last Intake of Solids: 09/03/18 Time Last Intake of Solids: 16:30 History Surgery Operation Date: 09/04/18 10:30 Proposed Procedures p Incision and Drainage Right Calf Fluid Collection - Abundio Bhakta MD Height/Weight Height: 5 ft 11 in Weight: 159.665 kg Allergies Allergy/AdvReac Type Severity Reaction Status Date / Time No Known Allergies Allergy Unverified 09/04/18 01:53 Medications Home Medications Medication Instructions Recorded Confirmed Last Taken clonidine HCl 0.3 mg tablet 0.3 mg PO BID 06/13/18 09/04/18 09/03/18 enalapril maleate 10 mg tablet 10 mg PO DAILY 06/13/18 09/04/18 09/03/18 magnesium oxide 400 mg capsule 400 mg PO BID cap 06/13/18 09/04/18 09/03/18 nortriptyline 50 mg capsule 100 mg PO HS cap 06/13/18 09/04/18 09/03/18 perphenazine 4 mg tablet 4 mg PO HS tab 06/13/18 09/04/18 09/03/18 sertraline 100 mg tablet 100 mg PO HS tab 06/13/18 09/04/18 09/03/18 tamsulosin 0.4 mg capsule 0.4 mg PO HS cap 06/13/18 09/04/18 09/03/18 warfarin 10 mg tablet 10 mg PO QPM 06/13/18 09/04/18 09/03/18 warfarin 2 mg tablet 2 mg PO QPM 06/13/18 09/04/18 09/03/18 atorvastatin 40 mg PO HS 09/04/18 09/04/18 09/03/18 mineral oil [Mineral Oil Heavy] 30 ml PO BID 09/04/18 09/04/18 09/03/18 perphenazine 8 mg PO HS 09/04/18 09/04/18 09/03/18 sertraline 50 mg PO HS 09/04/18 09/04/18 09/03/18 sulfamethoxazole-trimethoprim 1 tab PO BID 09/04/18 09/04/18 09/03/18 [Bactrim DS] Active Medications Generic Name Dose Route Start Last Admin Trade Name Freq PRN Reason Stop Dose Admin Acetaminophen 650 mg 09/04/18 09:21 09/04/18 11:05 Tylenol PO 10/04/18 09:20 650 mg Q4H PRN Administration pain/fever Clonidine HCl 0.3 mg 09/04/18 09:21 09/04/18 10:59 Catapress PO 10/04/18 09:20 0.3 mg BID CHRISTOPHER Administration Enalapril Maleate 10 mg 09/04/18 09:21 09/04/18 10:59 Vasotec PO 10/04/18 09:20 10 mg DAILY CHRISTOPHER Administration Piperacillin Sod/Tazobactam 120 mls @ 30 mls/hr 09/04/18 10:00 09/04/18 15:06 Sod 4.5 gm/ Dextrose IV 09/14/18 09:59 Infused Q8H CHRISTOPHER Infusion Protocol Sodium Chloride 1,000 mls @ 80 mls/hr 09/04/18 09:21 09/04/18 14:44 Nss 1000ml IV 09/04/18 21:50 80 mls/hr .[id number] CHRISTOPHER Infusion Magnesium Oxide 400 mg 09/04/18 09:21 09/04/18 10:57 Mag-Ox PO 10/04/18 09:20 400 mg BID CHRISTOPHER Administration Mineral Oil 30 ml 09/04/18 09:21 09/04/18 10:58 Kondremul PO 10/04/18 09:20 Not Given BID CHRISTOPHER Past Medical History Medical History History of pulmonary embolism (Resolved) Chronic anticoagulation (Chronic) Lumbar disc herniation (Chronic) Lumbar radiculopathy (Chronic) DVT (deep venous thrombosis) (Resolved) Gastrointestinal hemorrhage with melena (Resolved 03/31/14) Gum hemorrhage (Resolved) Low back pain (Chronic) Nasal fracture (Resolved) Anemia (Acute) Gastroesophageal reflux disease (Acute) History of CVA (cerebrovascular accident) (Acute) Hypertension (Acute) Lumbar radiculopathy, chronic (Acute) OCD (obsessive compulsive disorder) (Acute) Schizophrenia (Acute) Past Family History Family History Other Family history non-contributory Social History Smoking Status: Never smoker Do You Dip or Chew Tobacco: No Hx Alcohol Use: No Hx Substance Use: No Review of Systems no chest pain or sob Physical Exam Vital Signs Last Vital Signs Temp 36.7 C 09/04/18 15:13 Pulse 75 09/04/18 15:13 Resp 18 09/04/18 15:13 BP 136/89 09/04/18 15:13 Pulse Ox 100 09/04/18 15:13 Testing Electrocardiogram Date: 09/04/18 Findings: + NSR @ (84) Laboratory Results 09/04/18 01:20 09/04/18 01:20 PT 13.0 Seconds (9.0-12.0) H 09/04/18 15:57 INR 1.3 (0.9-1.1) H 09/04/18 15:57 APTT 35.0 Seconds (21.0-31.0) H 09/04/18 15:57
[2018-09-04] MEDS: VANCOMYCIN HCL 2,000 MG in SODIUM CHLORIDE 0.9% 500 ML IV SCH (18:41)
[2018-09-04] MEDS ORDERED: DEXAMETHASONE SOD INJ 4 MG/ML VIAL ONE (18:47)
[2018-09-04] MEDS ORDERED: POVIDONE-IODINE OP SOLN 30 ML BTL ONE (20:38)
--- NOTE | 2018-09-04 20:43 | Consultation ---
Date of Consultation September 04, 2018 Assessment & Plan (1) Intraoperative hemorrhage: Bleeding was controlled as above. We recommend that he stay off anticoagulation for at least 24 hours and then restarted. Please call if vascular is needed again during this hospital stay. Thank you very much for letting us participate in the care of this patient. History of Present Illness Reason for Consultation: Bleeding of the right calf wound Attending Physician: Kayla Lewis DO History of Present Illness This is a 48-year-old male who was on Coumadin which was stopped due to a back injection procedure. He was switched to Lovenox. He subsequently developed a hematoma in the right calf. This was debrided and evacuated in the operating room this evening. Once the hematoma was evacuated there was still significant bleeding seen in the base of the wound. Consultation was obtained from vascular surgery to aid in the control of bleeding. Allergies Allergy/AdvReac Type Severity Reaction Status Date / Time No Known Allergies Allergy Unverified 09/04/18 01:53 Home Medications Home Medications Medication Instructions Recorded Confirmed Type clonidine HCl 0.3 mg tablet 0.3 mg PO BID 06/13/18 09/04/18 History enalapril maleate 10 mg tablet 10 mg PO DAILY 06/13/18 09/04/18 History magnesium oxide 400 mg capsule 400 mg PO BID cap 06/13/18 09/04/18 History nortriptyline 50 mg capsule 100 mg PO HS cap 06/13/18 09/04/18 History perphenazine 4 mg tablet 4 mg PO HS tab 06/13/18 09/04/18 History sertraline 100 mg tablet 100 mg PO HS tab 06/13/18 09/04/18 History tamsulosin 0.4 mg capsule 0.4 mg PO HS cap 06/13/18 09/04/18 History warfarin 10 mg tablet 10 mg PO QPM 06/13/18 09/04/18 History warfarin 2 mg tablet 2 mg PO QPM 06/13/18 09/04/18 History atorvastatin 40 mg PO HS 09/04/18 09/04/18 History mineral oil [Mineral Oil Heavy] 30 ml PO BID 09/04/18 09/04/18 History perphenazine 8 mg PO HS 09/04/18 09/04/18 History sertraline 50 mg PO HS 09/04/18 09/04/18 History sulfamethoxazole-trimethoprim 1 tab PO BID 09/04/18 09/04/18 History [Bactrim DS] Patient History Medical History History of pulmonary embolism (Resolved) Chronic anticoagulation (Chronic) Lumbar disc herniation (Chronic) Lumbar radiculopathy (Chronic) DVT (deep venous thrombosis) (Resolved) Gastrointestinal hemorrhage with melena (Resolved 03/31/14) Gum hemorrhage (Resolved) Low back pain (Chronic) Nasal fracture (Resolved) Anemia (Acute) Gastroesophageal reflux disease (Acute) History of CVA (cerebrovascular accident) (Acute) Hypertension (Acute) Lumbar radiculopathy, chronic (Acute) OCD (obsessive compulsive disorder) (Acute) Schizophrenia (Acute) Family History Other Family history non-contributory Social History Preferred Language: Lithuanian Communication Ability: Effective Cob Sawyer Required: No Beliefs That Will Affect Care: None Current Living Situation: Other Current Living Situation Comment: from [facility] Other Information That Helps Us Care for You: No Feels Safe at Home: Yes Smoking Status: Never smoker Hx Alcohol Use: No Hx Substance Use: No Physical Exam Vital Signs (Past 24 Hours): Last Vital Signs Temp 36.9 C 09/04/18 18:08 Pulse 81 09/04/18 18:08 Resp 20 09/04/18 18:08 BP 158/89 H 09/04/18 18:08 Pulse Ox 97 09/04/18 18:08 The patient was under anesthesia and draped. The medial calf wound and small amount of arterial venous bleeding in the base. There was still remaining clot seen superiorly and inferiorly. This was evacuated. The bleeding was controlled with electrocautery and suture ligatures and hemoclips. Adequate hemostasis was noted at that time. The wound was then irrigated and closed by orthopedics.
--- NOTE | 2018-09-04 20:51 | Post Operative Brief Note ---
Immediate Post Op Note v1 Date of Surgery September 04, 2018 Pre & Post Diagnosis Operation Date: 09/04/18 10:30 Pre-Op Diagnosis: PYOMYOSITIS Post-Op Diagnosis: PYOMYOSITIS Procedure Operation Date: 09/04/18 10:30 Actual Procedures p Incision and Drainage Right Calf Fluid Collection(Right) - Abundio Bhakta MD Surgeon Abundio Bhakta MD Machine Specialist timothy shea Estimated Blood Loss 200 Findings Consistent with Post-Op Diagnosis Drains Hemovac Drain Anesthesia Type General Complications none Disposition Accompanied Patient To Recovery: No Disposition: Recovery Room
[2018-09-04] MEDS ORDERED: NALOXONE HCL 0.4 MG/1 ML VIAL/CARP IV PRN ×2 (21:06→21:43)
--- NOTE | 2018-09-04 21:07 | Operative Report ---
Post Operative Report Pre & Post Diagnosis Operation Date: 09/04/18 10:30 Pre-Op Diagnosis: PYOMYOSITIS Post-Op Diagnosis: PYOMYOSITIS Procedure Operation Date: 09/04/18 10:30 Actual Procedures p Evacuation of Right Calf Hematoma(Right) - Abundio Bhakta MD Surgeon Abundio Bhakta MD Color Control Supervisor timothy shea Estimated Blood Loss 200 Findings Consistent with Post-Op Diagnosis Specimens Culture Drains Hemovac Anesthesia Type General Complications none Bleeding. Secondary to venous malformation and thin-walled venous varicosities. Controlled with conventional techniques of pressure cautery ties and clips. Disposition Accompanied Patient To Recovery: No Disposition: Recovery Room Indications Patient's 48 years old. He has a history of DVT and stroke. He is on Coumadin. A week ago he was bridged with Lovenox off of the Coumadin so he can have a spinal injection. Subsequent to that he developed progressive right calf pain and swelling. He is also had a venous stasis ulceration of the right calf for about the past month. Ultrasound showed a large fluid collection in the right calf. The MRI demonstrated a large intramuscular hematoma within the medial gastrocnemius. He did have a temp of 38 earlier today in the ER. There was thought of possible infection. Description of Procedure Informed consent obtained. Patient identified. He identified the operative site as the right calf port. I marked with my initials. Preop surgical timeout performed. Preop dose of IV antibiotics given. He was already on vancomycin and Pipracil and tazobactam. He received Ancef. Tourniquet was applied to the right thigh and the leg was pre-scrubbed with Betadine prepped and draped in usual sterile fashion with Betadine pain. There is a 1 cm clean full-thickness through the skin down into the dermal layer of ulceration good granulating base with no surrounding erythema. Calf itself was tense particularly medially. There was some induration present as well especially more distal where the venous stasis changes were. DVT prophylaxis with mechanical devices postoperatively. The limb was exsanguinated with gravity and the tourniquet inflated to 300 mmHg on the right thigh. I then made about a 10 cm incision over the posterior medial aspect of the calf. This incision was made proximally in a longitudinal fashion. Electrocautery was utilized down to the subcutaneous tissues and transversing veins were electrocauterized. Division was carried down to the level of the gastrocnemius fascia which was then divided in line with the incision area then hematoma of varying degrees of organization was evacuated. Some of this was fairly fresh appearing clot. There is no purulence and no liquid blood. Some of that was more advanced in appearance and looked like much more organized hematoma. Some of this was mixed in with muscle tissue within the superficial posterior compartment. I explored in all planes and directions digitally and evacuated what I could. Irrigated and the tourniquet was let down and packing was held into the wound. There were a couple superficial bleeders which were easily controlled however there was a large bleeder deep within the base of the wound. Attempts at gaining control of this were a difficult as it turns out to have been a small collection of thin walled venous varicosities. As I gained control the vein would rip or tear and as I dissected bleeding was started in an adjacent area due to the conglomeration of vessels. I was able to gain control over this however I did note that there were several thin-walled venous lumens present. I then went ahead and inflated the tourniquet to help gain better control. At th is point there is still some bleeding which necessitated inflation of the tourniquet up to about 325. I elected to consult with Dr. Estrada and he was kind enough to come into the operating room. He helped explore the area and did a couple ties and some clips to help with the bleeding. The tourniquet was let down after being up for about 15 minutes. At that time there is still some bleeding which was controlled with pressure but eventually by the time Dr. Estrada came there was just some general oozing and no significant profuse bleeding. Some of it seemed venous and some of it was arterial in nature. After Dr. Estrada had helped to fully establish hemostasis irrigated with 500 cc of Betadine lavage followed by sterile saline. The wound remained dry. A large Hemovac drain was inserted exiting out jet- proximally. I closed the skin in 1 large layer with 2-0 and 3-0 nylon sutures. The muscular fascia was left open. The patient had 2+ posterior tib and dorsalis pedis pulses consistent with what he had preoperatively. The leg was cleaned with wet and dry sponges and a soft sterile dressing was applied Xeroform 4 x 4's ABDs Kerlix and an Alexander wrap from the toes up to the knee. Initially upon entering the hematoma area and in the area of the hematoma a culture was obtained. Nothing was suggestive of infection. No mass or neoplastic tissue was identified either. Patient was then awake from anesthesia without difficulty and taken to the recovery room in stable condition. At the culture was sent for specimen. Blood loss was approximately 200 cc. Counts were correct there is no unavailable to speak to at the conclusion the operation. Complication would be arteriovenous bleeding secondary to venous varicosity and malformations. This was addressed with the routine surgical techniques including a pressure electrocautery vascular clips and surgical ties. I attest to the content of the Intraoperative Record and any orders documented therein. Any exceptions are noted below.
[2018-09-04] MEDS ORDERED: MAGNESIUM HYDROXIDE SUSP 30 ML UDC PO PRN (21:43)
[2018-09-04] MEDS ORDERED: ALUMINUM/MAGNESIUM SUSP 30 ML UDC PO PRN (21:43)
[2018-09-04] MEDS ORDERED: DiphenhydrAMINE HCL 50 MG/ML VIAL IV PRN (21:43)
[2018-09-04] MEDS ORDERED: BISACODYL 10 MG SUPP PR PRN (21:43)
--- NOTE | 2018-09-04 22:00 | Anesthesiology Progress Note ---
Date of Service September 04, 2018 Anesthesia Post Procedure Vital Signs Vital Signs: Temp Pulse Pulse Pulse Resp BP BP 09/04/18 21:50 36.4 C L 73 16 168/86 H 09/04/18 21:40 75 16 166/85 H 09/04/18 21:30 78 16 170/85 H 09/04/18 21:20 79 16 177/87 H 09/04/18 21:10 79 16 166/90 H 09/04/18 21:04 36.1 C L 92 H 16 174/90 H 09/04/18 18:08 36.9 C 81 20 158/89 H 09/04/18 15:13 36.7 C 75 18 136/89 09/04/18 10:58 137/88 09/04/18 10:01 36.5 C 79 16 137/86 09/04/18 09:23 36.5 C 79 16 137/86 09/04/18 08:59 36.6 C 65 20 171/79 H 09/04/18 05:58 77 16 149/81 H 09/04/18 04:28 75 16 137/94 09/04/18 02:46 77 18 134/77 09/04/18 00:33 38 C H 79 16 122/72 Pulse Ox 09/04/18 21:50 94 09/04/18 21:40 97 09/04/18 21:30 92 09/04/18 21:20 97 09/04/18 21:10 94 09/04/18 21:04 97 09/04/18 18:08 97 09/04/18 15:13 100 09/04/18 10:58 09/04/18 10:01 100 09/04/18 09:23 100 09/04/18 08:59 98 09/04/18 05:58 09/04/18 04:28 99 09/04/18 02:46 100 09/04/18 00:33 99 Pain Intensity Right Calf: Pain Intensity: 0 Notes Mental Status: alert / awake / arousable Patient Amnestic to Procedure: Yes Nausea / Vomiting: adequately controlled Pain: adequately controlled Airway Patency, RR, SpO2: stable & adequate BP & HR: stable & adequate Hydration State: stable & adequate Anesthetic Complications: no major complications apparent and Pt Satisfied with anesthetic care
[2018-09-05] MEDS: TAMSULOSIN HCL 0.4 MG CAP PO SCH ×2 (00:55→20:21)
[2018-09-05] MEDS: KONDREMUL 480ML PO SCH ×3 (00:55→20:23)
[2018-09-05] MEDS: ATORVASTATIN 40 MG TAB PO SCH ×2 (00:56→20:23)
[2018-09-05] MEDS: MAGNESIUM OXIDE 400 MG TAB PO SCH ×3 (00:56→20:23)
[2018-09-05] MEDS: NORTRIPTYLINE HCL 25 MG CAP PO SCH ×2 (00:56→20:23)
[2018-09-05] MEDS: PERPHENAZINE 2 MG TABLET PO SCH ×4 (00:56→20:23)
[2018-09-05] MEDS: SERTRALINE HCL 50 MG TABLET PO SCH ×2 (00:57→20:24)
[2018-09-05] MEDS: SERTRALINE HCL 100 MG TABLET PO SCH ×2 (00:57→20:24)
[2018-09-05] MEDS ORDERED: PROCHLORPERAZINE 5 MG in SYRINGE 4 ML IV PRN (01:01)
[2018-09-05] MEDS ORDERED: PROCHLORPERAZINE 5 MG in SYRINGE 4 ML IV ONE (01:06)
[2018-09-05] MEDS: PIPERACILLIN/TAZOBACTAM 4.5 GM in DEXTROSE 5% 100 ML IV SCH ×3 (01:30→18:17)
[2018-09-05] MEDS: VANCOMYCIN HCL 2,000 MG in SODIUM CHLORIDE 0.9% 500 ML IV SCH ×2 (06:15→18:17)
[2018-09-05 07:24] LABS: Hematocrit (blood only) 29.5 % (42-52); Immature Granulocytes % (auto) 0.8 %; Lymphocytes # (auto) 0.52 K/uL (1.2-3.4); Mean Corpuscular Hgb Conc 33.9 g/dL (32-36); Mean Corpuscular Volume 80.6 fL (80-100); Mean Platelet Volume 10.8 fL (7.4-10.4); Monocytes # (auto) 0.76 K/uL (0.11-0.59); Monocytes % (auto) 5.8 %; Neutrophils % (auto) 89.4 %; Platelet Count 352 K/uL (130-400); RDW Coefficient of Variation 15.3 % (11.5-14.5); RDW Standard Deviation 45.2 fL (36.4-46.3); Red Blood Count 3.66 M/uL (4.7-6.1); White Blood Count 13.08 K/uL (4.8-10.8)
[2018-09-05 07:39] LABS: INR 1.1 (0.9-1.1); Prothrombin Time 11.4 Seconds (9.0-12.0)
[2018-09-05 07:57] LABS: Calcium 8.9 mg/dl (8.5-10.1); Creatinine Clr Calc Pharmacy 116.4 ml/min; Est GFR (African American) 82.1; Est GFR (Non-African American) 70.9; Potassium 5.5 mmol/L (3.5-5.1)
[2018-09-05] MEDS ORDERED: SODIUM CHLORIDE 0.9% 500 ML IV SCH (08:15)
--- NOTE | 2018-09-05 08:48 | Operative Report ---
Post Operative Report Pre & Post Diagnosis Operation Date: 09/04/18 10:30 Pre-Op Diagnosis: PYOMYOSITIS Post-Op Diagnosis: PYOMYOSITIS Procedure Operation Date: 09/04/18 10:30 Actual Procedures p Evacuation of Right Calf Hematoma(Right) - Abundio Bhakta MD Surgeon Dr Bhakta Sand Cutting Machine Operator timothy shea emilythalia Estimated Blood Loss 200 Findings Consistent with Post-Op Diagnosis Specimens none Complications Bleeding. Secondary to venous malformation and thin-walled venous varicosities. Controlled with conventional techniques of pressure cautery ties and clips. Indications See Dr Bhakta operative report for complete details. Description of Procedure See Dr Bhakta operative report for complete details. I was first calender worker during procedure to include prepping, draping, limb and instrument handling, wound closure, dressing application. I attest to the content of the Intraoperative Record and any orders documented therein. Any exceptions are noted below.
[2018-09-05] MEDS: DOCUSATE SODIUM 100 MG CAP PO SCH ×2 (09:04→20:23)
[2018-09-05] MEDS: ENALAPRIL MALEATE 10 MG TAB PO SCH (09:05)
[2018-09-05] MEDS: MULTIVITAMIN TAB PO SCH (09:06)
--- NOTE | 2018-09-05 15:22 | Progress Note ---
DATE: 09/05/2018 He is resting comfortably in bed. Pain is less than it was yesterday. He does not have any tingling or numbness. I discussed with him the results of the surgery. I discussed with him the bleeding issue and his varicose veins. I discussed with him that the vascular surgeon was called in to assist with control of bleeding. He is afebrile. His vital signs are stable. His Hemovac has been minimal. He has a 2+ dorsalis pedis, 1+ posterior tibial pulse. Normal sensation in the foot. He can flex and extend his toes, ankle invert and chip with some discomfort in all different directions, but much less than it was yesterday. There is no significant pain with passive movement of the toe and less pain with dorsiflexion of the ankle compared to yesterday. The foot is not swollen. His dressing is clean, dry, and intact. White count today is 13, likely secondary to stress. Hemoglobin 10, hematocrit is 30, platelet count is 352. INR today is 1.1. Potassium is a little bit high at 5.5 and his sodium is low at 129. MRSA screen is negative. Blood cultures are no growth to date. Leg culture from yesterday shows rare WBCs, no organisms, no growth to date. IMPRESSION: 1. Right leg hematoma. 2. Venous stasis disease. 3. Schizophrenia. 4. History of cerebrovascular accident. 5. Venous thromboembolic disease. PLAN: Will leave the drain in. Elevate the leg. He can wiggle his toes and move his leg as tolerated. He may weightbear as tolerated with therapy and with assistance. I think that this is a hematoma. I have a very low suspicion of there being infection, but I think it is reasonable to continue his intravenous antibiotics until more culture data is available. I think that the bleeding probably occurred due to his varicose thin-walled veins, perhaps a leaking due to being on blood thinners. This may have been due to therapeutic doses of Lovenox related to his recent spinal injection. Foot pumps for DVT prophylaxis. I think that it is okay to go ahead and resume his Coumadin at this time. We will continue to monitor and change the dressing tomorrow.
--- NOTE | 2018-09-05 15:30 | Hospitalist Progress Note ---
Date of Service September 05, 2018 Assessment & Plan (1) Pyomyositis: Patient with large fluid collection in right calf noted on contrast MRI - concern for hematoma vs infection/abscess. Patient is on chronic anticoagulation with Coumadin. INR is therapeutic at 1.9. Platelets normal. Patient with open wound on medial portion of right calf. Tm=38 in ER. Patient is hemodynamically stable and non-toxic in appearance. Was on Bactrim on arrival for treatment of LE wound OR on 09/04, evacuated large hematoma, no initial signs of infected fluid, sent for culture less likely pyomyositis and more likely just spontaneous hematoma causing swelling and pain less pain today, no fever d/w Dr. Bhakta, will observe for at least another 36-48 hours continue Vanco and Zosyn for today, if no growth on culture by tomorrow then stop antibiotics and observe (2) Chronic anticoagulation: Patient with history of DVT/PE, on chronic anticoagulation with Coumadin. INR = 1.9 on admission INR reversed with Vitamin K will hold on resuming until okay with surgery (3) History of CVA (cerebrovascular accident): Patient with remote history of CVA. -Continue Atorvastatin (4) Hypertension: Blood pressure well controlled at present -Continue Enalapril -Continue Clonidine -Continue to monitor (5) Schizophrenia: Patient oriented and appropriate. -Continue Perphenazine -Continue Sertraline -Continue Nortriptyline qHS (6) Hyperkalemia: 5.5 this AM, resolved with NSS fluid bolus 4.8 this afternoon repeat tomorrow Subjective patient feeling better today, still with pain in right leg but less pain reviewed operative note and discussed with Dr. Bhakta today low suspicion for infection based on surgical findings but will wait for cultures found to have some AVM in the leg, likely source of spontaneous bleeding on Lovenox/Coumadin reviewed labs, Hb down only slighty at 10 K was high at 5.5, gave fluid bolus, down to 4.8 this afternoon patient is eating well, no chest pain, no dyspnea Review of Systems All systems reviewed & are unremarkable except as noted in HPI & below Musculoskeletal: + swelling (right calf) and + myalgia (pain in right calf) Physical Exam Vital Signs (Past 24 Hours): Last Vital Signs Temp 36.6 C 09/05/18 15:23 Pulse 98 H 09/05/18 15:23 Resp 19 09/05/18 15:23 BP 133/85 09/05/18 15:23 Pulse Ox 98 09/05/18 15:23 Constitutional: WD/WN, vitals as above Eyes: PERRL, conjunctivae normal, anicteric sclerae ENMT: external ear and nose normal, oropharynx normal Neck: trachea midline, no thyromegaly Respiratory: normal respiratory effort, lungs clear to auscultation Cardiovascular: RRR, no murmur, no edema Extremities: + calf tenderness (right calf) Gastrointestinal (Abdomen): normal bowel sounds, soft, nontender, no hepatosplenomegaly Musculoskeletal: no cyanosis or clubbing, extremities motor strength 5/5 Extremities: + extremities abnormal to inspection (right calf swollen and tender, wrapped with DALI wrap, ROSE drain in place) Skin: no rashes, warm and dry Neurologic: patellar DTR's 2+ bilat, sensation intact and PERRL, EOMI, accommodation nl, no face palsy, no dysarthria Psychiatric: A+Ox3, euthymic affect Lymphatic: no cervical or axillary lymphadenopathy Results & Data Laboratory Results Laboratory Results - last 24 hr 09/04/18 09/05/18 09/05/18 15:57 07:02 07:02 WBC 13.08 H RBC 3.66 L Hgb 10.0 L Hct 29.5 L MCV 80.6 MCH 27.3 MCHC 33.9 RDW Std Deviation 45.2 RDW Coeff of Andrés 15.3 H Plt Count 352 MPV 10.8 H Immature Gran % (Auto) 0.8 Neut % (Auto) 89.4 Lymph % (Auto) 4.0 Swift % (Auto) 5.8 Eos % (Auto) 0.0 Baso % (Auto) 0.0 Immature Gran # (Auto) 0.10 H Neut # (Auto) 11.70 H Lymph # (Auto) 0.52 L Swift # (Auto) 0.76 H Eos # (Auto) 0.00 Baso # (Auto) 0.00 PT 13.0 H 11.4 INR 1.3 H 1.1 APTT 35.0 H PTT Ratio 1.3 Sodium Potassium Chloride Carbon Dioxide Anion Gap BUN Creatinine Est Cr Clr Drug Dosing Est GFR ( Amer) Est GFR (Non-Af Amer) BUN/Creatinine Ratio Glucose Calcium 09/05/18 07:02 WBC RBC Hgb Hct MCV MCH MCHC RDW Std Deviation RDW Coeff of Andrés Plt Count MPV Immature Gran % (Auto) Neut % (Auto) Lymph % (Auto) Swift % (Auto) Eos % (Auto) Baso % (Auto) Immature Gran # (Auto) Neut # (Auto) Lymph # (Auto) Swift # (Auto) Eos # (Auto) Baso # (Auto) PT INR APTT PTT Ratio Sodium 129 L Potassium 5.5 H D Chloride 101 Carbon Dioxide 24 Anion Gap 5.0 BUN 17 Creatinine 1.21 Est Cr Clr Drug Dosing 116.4 Est GFR ( Amer) 82.1 Est GFR (Non-Af Amer) 70.9 BUN/Creatinine Ratio 14.0 Glucose 101 H Calcium 8.9 Medications Administered Current Inpatient Medications Acetaminophen (Tylenol) 650 mg PO Q4H PRN PRN Reason: pain/fever Stop: 10/04/18 09:20 Last Admin: 09/04/18 11:05 Dose: 650 mg Documented by: Al Hydrox/Mg Hydrox/Simethicone (Maalox) 15 ml PO Q4H PRN PRN Reason: Heartburn Stop: 10/04/18 21:42 Atorvastatin Calcium (Lipitor) 40 mg PO HS CHRISTOPHER Stop: 10/04/18 20:59 Last Admin: 09/05/18 00:56 Dose: Not Given Documented by: Bisacodyl (Dulcolax) 10 mg PA DAILY PRN PRN Reason: Constipation Stop: 10/04/18 21:42 Clonidine HCl (Catapress) 0.3 mg PO BID CHRISTOPHER Stop: 10/04/18 09:20 Last Admin: 09/05/18 09:04 Dose: 0.3 mg Documented by: Diphenhydramine HCl (Benadryl) 25 mg IV Q8H PRN PRN Reason: Itching Stop: 10/04/18 21:42 Diphenhydramine HCl (Benadryl Capsule) 25 mg PO Q8H PRN PRN Reason: Itching Stop: 10/04/18 21:42 Docusate Sodium (Colace) 100 mg PO BID PRN PRN Reason: Constipation Stop: 10/04/18 09:20 Docusate Sodium (Colace) 100 mg PO BID CHRISTOPHER Stop: 10/05/18 08:59 Last Admin: 09/05/18 09:04 Dose: Not Given Documented by: Enalapril Maleate (Vasotec) 10 mg PO DAILY [facility] Stop: 10/04/18 09:20 Last Admin: 09/05/18 09:05 Dose: 10 mg Documented by: Piperacillin Sod/Tazobactam (Sod 4.5 gm/ Dextrose) 120 mls @ 30 mls/hr IV Q8H [facility]; Protocol Stop: 09/14/18 09:59 Last Infusion: 09/05/18 15:17 Dose: Infused Documented by: Vancomycin HCl 2,000 mg/ (Sodium Chloride) 540 mls @ 200 mls/hr IV Q12H [facility]; Protocol Stop: 09/14/18 17:59 Last Infusion: 09/05/18 08:57 Dose: Infused Documented by: Magnesium Hydroxide (Milk Of Magnesia) 30 ml PO Q6H PRN PRN Reason: Constipation Stop: 10/04/18 21:42 Magnesium Oxide (Mag-Ox) 400 mg PO BID [facility] Stop: 10/04/18 09:20 Last Admin: 09/05/18 09:04 Dose: 400 mg Documented by: Mineral Oil (Kondremul) 30 ml PO BID [facility] Stop: 10/04/18 09:20 Last Admin: 09/05/18 09:03 Dose: Not Given Documented by: Miscellaneous Information (Consult) 1 ea N/A UD PRN PRN Reason: Consult Stop: 10/04/18 09:20 Miscellaneous Information (Consult) 1 ea N/A UD PRN PRN Reason: Consult Stop: 10/04/18 09:20 Multivitamins (Multivitamin Tab) 1 tab PO QAM [facility] Stop: 10/05/18 08:59 Last Admin: 09/05/18 09:06 Dose: 1 tab Documented by: Naloxone HCl (Narcan) 0.1 mg IV UD PRN PRN Reason: Opioid Overdose Stop: 10/04/18 21:05 Naloxone HCl (Narcan) 0.1 mg IV Q5M PRN PRN Reason: Oversedation/Resp Depression Stop: 10/04/18 21:42 Nortriptyline HCl (Pamelor) 100 mg PO HS [facility] Stop: 10/04/18 20:59 Last Admin: 09/05/18 00:56 Dose: Not Given Documented by: Ondansetron HCl (Zofran) 4 mg IV Q6H PRN PRN Reason: Nausea Stop: 10/04/18 09:20 Ondansetron HCl (Zofran) 4 mg IV Q6H PRN PRN Reason: Nausea And Vomiting Stop: 10/04/18 21:42 Last Admin: 09/04/18 22:29 Dose: 4 mg Documented by: Oxycodone HCl (Roxicodone Immediate Rel) 5 mg PO Q4 PRN PRN Reason: Pain Stop: 09/18/18 09:20 Perphenazine (Trilafon) 8 mg PO [facility] Stop: 10/04/18 20:59 Last Admin: 09/05/18 00:56 Dose: Not Given Documented by: Perphenazine (Trilafon) 4 mg PO [facility] Stop: 10/04/18 20:59 Last Admin: 09/05/18 00:56 Dose: Not Given Documented by: Sennosides (Senokot) 17.2 mg PO [facility] Stop: 10/05/18 20:59 Sertraline HCl (Zoloft) 50 mg PO [facility] Stop: 10/04/18 20:59 Last Admin: 09/05/18 00:57 Dose: Not Given Documented by: Sertraline HCl (Zoloft) 100 mg PO [facility] Stop: 10/04/18 20:59 Last Admin: 09/05/18 00:57 Dose: Not Given Documented by: Tamsulosin HCl (Flomax) 0.4 mg PO [facility] Stop: 10/04/18 20:59 Last Admin: 09/05/18 00:55 Dose: Not Given Documented by: Warfarin Sodium (Coumadin) 10 mg PO DAILY@1600 [facility] Stop: 10/05/18 15:59 Warfarin Sodium (Coumadin) 2 mg PO DAILY@1600 [facility] Stop: 10/05/18 15:59 (1) Hypertension Hypertension type: essential hypertension Qualified Code(s): I10 - Essential (primary) hypertension
[2018-09-05] MEDS: WARFARIN SOD 2 MG TAB PO SCH (15:40)
[2018-09-05] MEDS: WARFARIN SOD 10 MG TAB PO SCH (15:41)
[2018-09-05 16:46] LABS: BUN Creatinine Ratio 14.1 (10-20); Calcium 8.7 mg/dl (8.5-10.1); Creatinine Clr Calc Pharmacy 101.3 ml/min; Est GFR (African American) 69.5; Est GFR (Non-African American) 59.9; Potassium 4.8 mmol/L (3.5-5.1)
[2018-09-05] MEDS: SENNA 8.6 MG TAB PO SCH (20:23)
[2018-09-06] MEDS: PIPERACILLIN/TAZOBACTAM 4.5 GM in DEXTROSE 5% 100 ML IV SCH ×2 (02:11→10:38)
[2018-09-06] MEDS ORDERED: VANCOMYCIN TROUGH ONE (05:30)
[2018-09-06 05:47] LABS: Basophils # (auto) 0.01 K/uL (0-0.2); Basophils % (auto) 0.1 %; Eosinophils # (auto) 0.09 K/uL (0-0.5); Hematocrit (blood only) 28.1 % (42-52); Immature Granulocytes # (auto) 0.07 K/uL (0.00-0.02); Immature Granulocytes % (auto) 0.8 %; Lymphocytes # (auto) 1.58 K/uL (1.2-3.4); Lymphocytes % (auto) 17.5 %; Mean Corpuscular Volume 82.4 fL (80-100); Mean Platelet Volume 10.3 fL (7.4-10.4); Monocytes # (auto) 1.58 K/uL (0.11-0.59); Monocytes % (auto) 17.5 %; Neutrophils # (auto) 5.72 K/uL (1.4-6.5); Neutrophils % (auto) 63.1 %; Platelet Count 331 K/uL (130-400); RDW Coefficient of Variation 15.5 % (11.5-14.5); RDW Standard Deviation 46.8 fL (36.4-46.3); Red Blood Count 3.41 M/uL (4.7-6.1); White Blood Count 9.05 K/uL (4.8-10.8)
[2018-09-06 05:55] LABS: INR 1.1 (0.9-1.1); Prothrombin Time 10.8 Seconds (9.0-12.0)
[2018-09-06 06:08] LABS: BUN Creatinine Ratio 14.4 (10-20); Calcium 8.2 mg/dl (8.5-10.1); Creatinine Clr Calc Pharmacy 106.7 ml/min; Est GFR (African American) 73.9; Est GFR (Non-African American) 63.8; Potassium 4.4 mmol/L (3.5-5.1)
[2018-09-06] MEDS: VANCOMYCIN HCL 2,000 MG in SODIUM CHLORIDE 0.9% 500 ML IV SCH (06:15)
--- NOTE | 2018-09-06 08:59 | Orthopedic Progress Note ---
Date of Service September 06, 2018 Assessment & Plan (1) Hematoma of right lower extremity: POD 2 - s/p incision, debridement and evacuation of hematoma right calf Continue OOB/ WBAT RLE. Use walker or crutches to assist with ambulation. Ice/elevation right lower extremity as needed for pain/swelling. Encouraged ankle pumps, and attempting to put his foot flat on the ground Hemovac removed today. Keep dressings in place right lower extremity, discussed with nursing, reinforce dressings today as needed. Regular diet as ordered Local wound care as per wound care nurse. Will discuss findings with Dr. Bhakta Will continue to follow during inpatient stay. Follow up with Dr. Bhakta in approximately 2 weeks after surgery/as scheduled. Present on Admission?: Yes Subjective Patient resting in bed, states mild pain 3/10. Seen in conjunction with wound care nurse this morning. States out of bed a little yesterday, but walks on his toes as it hurts a lot to put his foot down on the floor. Physical Exam Vital Signs (Past 24 Hours): Last Vital Signs Temp 36.3 C L 09/06/18 07:34 Pulse 78 09/06/18 07:34 Resp 19 09/06/18 07:34 BP 107/73 09/06/18 07:34 Pulse Ox 100 09/06/18 07:34 Physical Exam: Right calf dressings removed, incision clean, dry, intact. Calf supple, hemovac in place and removed today. Some dark serous bloody drainage expressed from hemovac site, controlled with pressure dressing. Venous ulcer evaluated by wound care nurse, aquacel dressing applied. Compression dressing reapplied to right calf. Encourage ankle range of motion and attempting to put foot flat on floor to help stretch out his calf. Results & Data Laboratory Results 09/06/18 09/06/18 09/06/18 Range/Units 05:25 05:25 05:25 WBC 9.05 (4.8-10.8) K/uL RBC 3.41 L (4.7-6.1) M/uL Hgb 9.0 L (14.0-18.0) g/dL Hct 28.1 L (42-52) % MCV 82.4 (80-100) fL MCH 26.4 (25-34) pg MCHC 32.0 (32-36) g/dL RDW Std Deviation 46.8 H (36.4-46.3) fL RDW Coeff of Andrés 15.5 H (11.5-14.5) % Plt Count 331 (130-400) K/uL MPV 10.3 (7.4-10.4) fL Immature Gran % (Auto) 0.8 % Neut % (Auto) 63.1 % Lymph % (Auto) 17.5 % [place] % (Auto) 17.5 % Eos % (Auto) 1.0 % Baso % (Auto) 0.1 % Immature Gran # (Auto) 0.07 H (0.00-0.02) K/uL Neut # (Auto) 5.72 (1.4-6.5) K/uL Lymph # (Auto) 1.58 (1.2-3.4) K/uL [place] # (Auto) 1.58 H (0.11-0.59) K/uL Eos # (Auto) 0.09 (0-0.5) K/uL Baso # (Auto) 0.01 (0-0.2) K/uL PT (9.0-12.0) Seconds INR (0.9-1.1) Sodium 133 L (136-145) mmol/L Potassium 4.4 (3.5-5.1) mmol/L Chloride 105 (98-107) mmol/L Carbon Dioxide 26 (21-32) mmol/L Anion Gap 2.0 L (3-11) BUN 19 H (7-18) mg/dl Creatinine 1.32 (0.6-1.4) mg/dl Est Cr Clr Drug Dosing 106.7 ml/min Est GFR ( Amer) 73.9 Est GFR (Non-Af Amer) 63.8 BUN/Creatinine Ratio 14.4 (10-20) Glucose 105 H (70-99) mg/dl Calcium 8.2 L (8.5-10.1) mg/dl Vancomycin Trough 22.0 (See Comment) mcg/ml 09/06/18 09/05/18 Range/Units 05:25 16:15 WBC (4.8-10.8) K/uL RBC (4.7-6.1) M/uL Hgb (14.0-18.0) g/dL Hct (42-52) % MCV (80-100) fL MCH (25-34) pg MCHC (32-36) g/dL RDW Std Deviation (36.4-46.3) fL RDW Coeff of Andrés (11.5-14.5) % Plt Count (130-400) K/uL MPV (7.4-10.4) fL Immature Gran % (Auto) % Neut % (Auto) % Lymph % (Auto) % [place] % (Auto) % Eos % (Auto) % Baso % (Auto) % Immature Gran # (Auto) (0.00-0.02) K/uL Neut # (Auto) (1.4-6.5) K/uL Lymph # (Auto) (1.2-3.4) K/uL [place] # (Auto) (0.11-0.59) K/uL Eos # (Auto) (0-0.5) K/uL Baso # (Auto) (0-0.2) K/uL PT 10.8 (9.0-12.0) Seconds INR 1.1 (0.9-1.1) Sodium 133 L (136-145) mmol/L Potassium 4.8 (3.5-5.1) mmol/L Chloride 102 (98-107) mmol/L Carbon Dioxide 27 (21-32) mmol/L Anion Gap 4.0 (3-11) BUN 20 H (7-18) mg/dl Creatinine 1.39 (0.6-1.4) mg/dl Est Cr Clr Drug Dosing 101.3 ml/min Est GFR ( Amer) 69.5 Est GFR (Non-Af Amer) 59.9 BUN/Creatinine Ratio 14.1 (10-20) Glucose 96 (70-99) mg/dl Calcium 8.7 (8.5-10.1) mg/dl Vancomycin Trough (See Comment) mcg/ml
[2018-09-06] MEDS: KONDREMUL 480ML PO SCH ×2 (10:28→20:44)
[2018-09-06] MEDS: ENALAPRIL MALEATE 10 MG TAB PO SCH (10:28)
[2018-09-06] MEDS: MULTIVITAMIN TAB PO SCH (10:28)
[2018-09-06] MEDS: DOCUSATE SODIUM 100 MG CAP PO SCH ×2 (10:28→20:44)
[2018-09-06] MEDS: MAGNESIUM OXIDE 400 MG TAB PO SCH ×2 (10:29→20:45)
[2018-09-06] MEDS: WARFARIN SOD 10 MG TAB PO SCH (15:58)
[2018-09-06] MEDS: WARFARIN SOD 2 MG TAB PO SCH (15:58)
--- NOTE | 2018-09-06 16:22 | Hospitalist Progress Note ---
Date of Service September 06, 2018 Assessment & Plan (1) Hematoma of right lower extremity: spontaneous, likely from Lovenox bridge off Coumadin and AVM in the leg evacuated no signs of infection continue to hold anticoagulation for time being (2) Pyomyositis: OR on 09/04, evacuated large hematoma, no initial signs of infected fluid, sent for culture not pyomyositis and more likely just spontaneous hematoma causing swelling and pain less pain today, no fever d/w Dr. Bhakta, will observe through tomorrow stop Vanco and Zosyn today no growth on culture (blood and wound) (3) Chronic anticoagulation: Patient with history of DVT/PE, on chronic anticoagulation with Coumadin. INR = 1.9 on admission INR reversed with Vitamin K will hold on resuming until okay with surgery (4) History of CVA (cerebrovascular accident): Patient with remote history of CVA. -Continue Atorvastatin (5) Hypertension: Blood pressure well controlled at present -Continue Enalapril -Continue Clonidine -Continue to monitor (6) Schizophrenia: Patient oriented and appropriate. -Continue Perphenazine -Continue Sertraline -Continue Nortriptyline qHS (7) Hyperkalemia: resolved yesterday, it is 4.4 today repeat tomorrow Subjective patient feeling better today, actually able to put some weight on right foot he is wiggling toes constantly eating well, no chest pain, no dyspnea reviewed labs, Hb down slightly at 9.0, WBC normal K is stable at 4.4 no growth on wound cultures, no fever, will stop antibiotics Review of Systems Review of Systems: All systems reviewed & are unremarkable except as noted in HPI & below Musculoskeletal: + swelling (right calf) and + myalgia (pain in right calf) Physical Exam Constitutional: WD/WN, vitals as above Eyes: PERRL, conjunctivae normal, anicteric sclerae ENMT: external ear and nose normal, oropharynx normal Neck: trachea midline, no thyromegaly Respiratory: normal respiratory effort, lungs clear to auscultation Cardiovascular: RRR, no murmur, no edema Extremities: + calf tenderness (right calf) Gastrointestinal (Abdomen): normal bowel sounds, soft, nontender, no hepatosplenomegaly Musculoskeletal: no cyanosis or clubbing, extremities motor strength 5/5 Extremities: + extremities abnormal to inspection (right calf swollen and tender, wrapped with DALI wrap) Skin: no rashes, warm and dry Neurologic: patellar DTR's 2+ bilat, sensation intact and PERRL, EOMI, accom modation nl, no face palsy, no dysarthria Psychiatric: A+Ox3, euthymic affect Lymphatic: no cervical or axillary lymphadenopathy Results & Data Vital Signs (Past 12 Hours) Vital Signs Temp Pulse Resp BP Pulse Ox 09/06/18 15:31 36.9 C 91 H 18 131/83 100 09/06/18 07:34 36.3 C L 78 19 107/73 100 Laboratory Results Laboratory Results - last 24 hr 09/05/18 09/06/18 09/06/18 16:15 05:25 05:25 WBC RBC Hgb Hct MCV MCH MCHC RDW Std Deviation RDW Coeff of Andrés Plt Count MPV Immature Gran % (Auto) Neut % (Auto) Lymph % (Auto) [place] % (Auto) Eos % (Auto) Baso % (Auto) Immature Gran # (Auto) Neut # (Auto) Lymph # (Auto) [place] # (Auto) Eos # (Auto) Baso # (Auto) PT 10.8 INR 1.1 Sodium 133 L 133 L Potassium 4.8 4.4 Chloride 102 105 Carbon Dioxide 27 26 Anion Gap 4.0 2.0 L BUN 20 H 19 H Creatinine 1.39 1.32 Est Cr Clr Drug Dosing 101.3 106.7 Est GFR ( Amer) 69.5 73.9 Est GFR (Non-Af Amer) 59.9 63.8 BUN/Creatinine Ratio 14.1 14.4 Glucose 96 105 H Calcium 8.7 8.2 L Vancomycin Trough 09/06/18 09/06/18 05:25 05:25 WBC 9.05 RBC 3.41 L Hgb 9.0 L Hct 28.1 L MCV 82.4 MCH 26.4 MCHC 32.0 RDW Std Deviation 46.8 H RDW Coeff of Andrés 15.5 H Plt Count 331 MPV 10.3 Immature Gran % (Auto) 0.8 Neut % (Auto) 63.1 Lymph % (Auto) 17.5 [place] % (Auto) 17.5 Eos % (Auto) 1.0 Baso % (Auto) 0.1 Immature Gran # (Auto) 0.07 H Neut # (Auto) 5.72 Lymph # (Auto) 1.58 [place] # (Auto) 1.58 H Eos # (Auto) 0.09 Baso # (Auto) 0.01 PT INR Sodium Potassium Chloride Carbon Dioxide Anion Gap BUN Creatinine Est Cr Clr Drug Dosing Est GFR ( Amer) Est GFR (Non-Af Amer) BUN/Creatinine Ratio Glucose Calcium Vancomycin Trough 22.0 Microbiology 09/04/18 18:58 Leg,Right Gram Stain - Final 09/04/18 18:58 Leg,Right Aerobic and Anaerobic Culture - Preliminary No growth to date. 09/04/18 09:48 Blood Blood Culture - Preliminary No growth to date. 09/04/18 09:35 Blood Blood Culture - Preliminary No growth to date. 09/04/18 01:22 Blood Blood Culture - Preliminary No growth to date. 09/04/18 01:20 Blood Blood Culture - Preliminary No growth to date. Medications Administered Current Inpatient Medications Acetaminophen (Tylenol) 650 mg PO Q4H PRN PRN Reason: pain/fever Stop: 10/04/18 09:20 Last Admin: 09/04/18 11:05 Dose: 650 mg Documented by: Al Hydrox/Mg Hydrox/Simethicone (Maalox) 15 ml PO Q4H PRN PRN Reason: Heartburn Stop: 10/04/18 21:42 Atorvastatin Calcium (Lipitor) 40 mg PO HS [facility] Stop: 10/04/18 20:59 Last Admin: 09/05/18 20:23 Dose: Not Given Documented by: Bisacodyl (Dulcolax) 10 mg [place] DAILY PRN PRN Reason: Constipation Stop: 10/04/18 21:42 Clonidine HCl (Catapress) 0.3 mg PO BID [facility] Stop: 10/04/18 09:20 Last Admin: 09/06/18 10:28 Dose: 0.3 mg Documented by: Diphenhydramine HCl (Benadryl) 25 mg IV Q8H PRN PRN Reason: Itching Stop: 10/04/18 21:42 Diphenhydramine HCl (Benadryl Capsule) 25 mg PO Q8H PRN PRN Reason: Itching Stop: 10/04/18 21:42 Docusate Sodium (Colace) 100 mg PO BID PRN PRN Reason: Constipation Stop: 10/04/18 09:20 Docusate Sodium (Colace) 100 mg PO BID [facility] Stop: 10/05/18 08:59 Last Admin: 09/06/18 10:28 Dose: Not Given Documented by: Enalapril Maleate (Vasotec) 10 mg PO DAILY [facility] Stop: 10/04/18 09:20 Last Admin: 09/06/18 10:28 Dose: 10 mg Documented by: Magnesium Hydroxide (Milk Of Magnesia) 30 ml PO Q6H PRN PRN Reason: Constipation Stop: 10/04/18 21:42 Magnesium Oxide (Mag-Ox) 400 mg PO BID [facility] Stop: 10/04/18 09:20 Last Admin: 09/06/18 10:29 Dose: 400 mg Documented by: Mineral Oil (Kondremul) 30 ml PO BID [facility] Stop: 10/04/18 09:20 Last Admin: 09/06/18 10:28 Dose: Not Given Documented by: Multivitamins (Multivitamin Tab) 1 tab PO QAM [facility] Stop: 10/05/18 08:59 Last Admin: 09/06/18 10:28 Dose: 1 tab Documented by: Naloxone HCl (Narcan) 0.1 mg IV UD PRN PRN Reason: Opioid Overdose Stop: 10/04/18 21:05 Naloxone HCl (Narcan) 0.1 mg IV Q5M PRN PRN Reason: Oversedation/Resp Depression Stop: 10/04/18 21:42 Nortriptyline HCl (Pamelor) 100 mg PO [facility] Stop: 10/04/18 20:59 Last Admin: 09/05/18 20:23 Dose: Not Given Documented by: Ondansetron HCl (Zofran) 4 mg IV Q6H PRN PRN Reason: Nausea Stop: 10/04/18 09:20 Ondansetron HCl (Zofran) 4 mg IV Q6H PRN PRN Reason: Nausea And Vomiting Stop: 10/04/18 21:42 Last Admin: 09/04/18 22:29 Dose: 4 mg Documented by: Oxycodone HCl (Roxicodone Immediate Rel) 5 mg PO Q4 PRN PRN Reason: Pain Stop: 09/18/18 09:20 Perphenazine (Trilafon) 8 mg PO [facility] Stop: 10/04/18 20:59 Last Admin: 09/05/18 20:23 Dose: Not Given Documented by: Perphenazine (Trilafon) 4 mg PO [facility] Stop: 10/04/18 20:59 Last Admin: 09/05/18 20:23 Dose: Not Given Documented by: Sennosides (Senokot) 17.2 mg PO [facility] Stop: 10/05/18 20:59 Last Admin: 09/05/18 20:23 Dose: Not Given Documented by: Sertraline HCl (Zoloft) 50 mg PO [facility] Stop: 10/04/18 20:59 Last Admin: 09/05/18 20:24 Dose: Not Given Documented by: Sertraline HCl (Zoloft) 100 mg PO [facility] Stop: 10/04/18 20:59 Last Admin: 09/05/18 20:24 Dose: Not Given Documented by: Tamsulosin HCl (Flomax) 0.4 mg PO [facility] Stop: 10/04/18 20:59 Last Admin: 09/05/18 20:21 Dose: 0.4 mg Documented by: Warfarin Sodium (Coumadin) 10 mg PO DAILY@1600 [facility] Stop: 10/05/18 15:59 Last Admin: 09/06/18 15:58 Dose: 10 mg Documented by: Warfarin Sodium (Coumadin) 2 mg PO DAILY@1600 [facility] Stop: 10/05/18 15:59 Last Admin: 09/06/18 15:58 Dose: 2 mg Documented by: (1) Hypertension Hypertension type: essential hypertension Qualified Code(s): I10 - Essential (primary) hypertension
[2018-09-06] MEDS: PERPHENAZINE 2 MG TABLET PO SCH ×2 (20:45)
[2018-09-06] MEDS: SENNA 8.6 MG TAB PO SCH (20:45)
[2018-09-06] MEDS: NORTRIPTYLINE HCL 25 MG CAP PO SCH (20:45)
[2018-09-06] MEDS: ATORVASTATIN 40 MG TAB PO SCH (20:45)
[2018-09-06] MEDS: TAMSULOSIN HCL 0.4 MG CAP PO SCH (20:46)
[2018-09-06] MEDS: SERTRALINE HCL 100 MG TABLET PO SCH (20:46)
[2018-09-06] MEDS: SERTRALINE HCL 50 MG TABLET PO SCH (20:46)
[2018-09-06] MEDS: ACETAMINOPHEN 325 MG TAB PO PRN (20:46)
[2018-09-07 06:54] LABS: Basophils # (auto) 0.01 K/uL (0-0.2); Basophils % (auto) 0.2 %; Eosinophils # (auto) 0.12 K/uL (0-0.5); Eosinophils % (auto) 1.9 %; Hematocrit (blood only) 26.3 % (42-52); Hemoglobin 8.3 g/dL (14.0-18.0); Immature Granulocytes # (auto) 0.08 K/uL (0.00-0.02); Immature Granulocytes % (auto) 1.2 %; Lymphocytes # (auto) 1.62 K/uL (1.2-3.4); Mean Corpuscular Hgb Conc 31.6 g/dL (32-36); Mean Corpuscular Volume 81.9 fL (80-100); Mean Platelet Volume 10.5 fL (7.4-10.4); Monocytes # (auto) 0.74 K/uL (0.11-0.59); Monocytes % (auto) 11.4 %; Neutrophils % (auto) 60.3 %; Platelet Count 353 K/uL (130-400); RDW Coefficient of Variation 15.9 % (11.5-14.5); RDW Standard Deviation 47.6 fL (36.4-46.3); Red Blood Count 3.21 M/uL (4.7-6.1); White Blood Count 6.47 K/uL (4.8-10.8)
[2018-09-07] MEDS: SENNA 8.6 MG TAB PO SCH (07:49)
[2018-09-07] MEDS: MULTIVITAMIN TAB PO SCH (07:50)
[2018-09-07] MEDS: ENALAPRIL MALEATE 10 MG TAB PO SCH (07:50)
[2018-09-07] MEDS: DOCUSATE SODIUM 100 MG CAP PO SCH ×2 (07:50→21:05)
[2018-09-07] MEDS: NORTRIPTYLINE HCL 25 MG CAP PO SCH (07:51)
[2018-09-07] MEDS: KONDREMUL 480ML PO SCH ×2 (07:54→21:05)
[2018-09-07] MEDS: MAGNESIUM OXIDE 400 MG TAB PO SCH ×2 (07:54→21:05)
[2018-09-07 12:57] LABS: Hematocrit (blood only) 27.2 % (42-52); Hemoglobin 8.7 g/dL (14.0-18.0)
--- NOTE | 2018-09-07 14:51 | Orthopedic Progress Note ---
Date of Service September 07, 2018 Assessment & Plan (1) Hematoma of right lower extremity: Cultures are no growth. Overall doing better. Continue PT. We will plan on changing dressing tomorrow. Continue Coumadin and will check his PT/INR in the morning. Present on Admission?: Yes Subjective Leg feels better. No numbness or tingling. Up ambulating and able to put foot flat. Physical Exam Physical Exam: Pedal pulses are 2+. Ankle dorsiflexion to neutral and plantar flexion about 30 degrees. Sensation intact. Dressing clean and dry. Less pain with ankle movement. Strength normal. Results & Data Vital Signs (Past 12 Hours) Vital Signs Temp Pulse Resp BP Pulse Ox 09/07/18 07:22 36.5 C 81 18 104/70 100 Laboratory Results Microbiology 09/04/18 18:58 Gram Stain - Final Leg,Right Aerobic and Anaerobic Culture - Preliminary No growth to date. 09/07/18 09/07/18 Range/Units 12:46 06:25 WBC 6.47 (4.8-10.8) K/uL RBC 3.21 L (4.7-6.1) M/uL Hgb 8.7 L 8.3 L (14.0-18.0) g/dL Hct 27.2 L 26.3 L (42-52) % MCV 81.9 (80-100) fL MCH 25.9 (25-34) pg MCHC 31.6 L (32-36) g/dL RDW Std Deviation 47.6 H (36.4-46.3) fL RDW Coeff of Andrés 15.9 H (11.5-14.5) % Plt Count 353 (130-400) K/uL MPV 10.5 H (7.4-10.4) fL Immature Gran % (Auto) 1.2 % Neut % (Auto) 60.3 % Lymph % (Auto) 25.0 % [place] % (Auto) 11.4 % Eos % (Auto) 1.9 % Baso % (Auto) 0.2 % Immature Gran # (Auto) 0.08 H (0.00-0.02) K/uL Neut # (Auto) 3.90 (1.4-6.5) K/uL Lymph # (Auto) 1.62 (1.2-3.4) K/uL [place] # (Auto) 0.74 H (0.11-0.59) K/uL Eos # (Auto) 0.12 (0-0.5) K/uL Baso # (Auto) 0.01 (0-0.2) K/uL
[2018-09-07] MEDS: WARFARIN SOD 2 MG TAB PO SCH (15:34)
[2018-09-07] MEDS: WARFARIN SOD 10 MG TAB PO SCH (15:34)
--- NOTE | 2018-09-07 16:54 | Hospitalist Progress Note ---
Date of Service September 07, 2018 Assessment & Plan (1) Hematoma of right lower extremity: spontaneous, likely from Lovenox bridge off Coumadin and AVM in the leg evacuated no signs of infection back on Coumadin, check INR in the AM difficulty ambulating, will ask CM about rehab for inmates (2) Pyomyositis: OR on 09/04, evacuated large hematoma, no initial signs of infected fluid, sent for culture not pyomyositis and more likely just spontaneous hematoma causing swelling and pain less pain today, no fever d/w Dr. Bhakta, will observe through tomorrow stop Vanco and Zosyn today no growth on culture (blood and wound) (3) Chronic anticoagulation: Patient with history of DVT/PE, on chronic anticoagulation with Coumadin. INR = 1.9 on admission INR reversed with Vitamin K Coumadin resumed, check INR tomorrow (4) History of CVA (cerebrovascular accident): Patient with remote history of CVA. -Continue Atorvastatin (5) Hypertension: Blood pressure well controlled at present -Continue Enalapril -Continue Clonidine -Continue to monitor (6) Schizophrenia: Patient oriented and appropriate. -Continue Perphenazine -Continue Sertraline -Continue Nortriptyline qHS (7) Hyperkalemia: resolved with fluids Subjective patient feeling better, just really weak, difficult time walking on right leg due to pain therapy recommending more rehab, won't get it if he goes back to [facility] Hb down slightly to 8.3 but then back up to 8.7 d/w Dr. Bhakta, plan to check INR in the AM and H/H, will change dressing should be good for d/c tomorrow patient asking about rehab at [facility], will ask CM Review of Systems Review of Systems: All systems reviewed & are unremarkable except as noted in HPI & below Musculoskeletal: + myalgia (right calf) Physical Exam Constitutional: WD/WN, vitals as above Eyes: PERRL, conjunctivae normal, anicteric sclerae ENMT: external ear and nose normal, oropharynx normal Neck: trachea midline, no thyromegaly Respiratory: normal respiratory effort, lungs clear to auscultation Cardiovascular: RRR, no murmur, no edema Extremities: + calf tenderness (right calf) Gastrointestinal (Abdomen): normal bowel sounds, soft, nontender, no hepatosplenomegaly Musculoskeletal: no cyanosis or clubbing, extremities motor strength 5/5 Extremities: + extremities abnormal to inspection (right calf swollen and tender, wrapped with DALI wrap) Skin: no rashes, warm and dry Neurologic: patellar DTR's 2+ bilat, sensation intact and PERRL, EOMI, accommodation nl, no face palsy, no dysarthria Psychiatric: A+Ox3, euthymic affect Lymphatic: no cervical or axillary lymphadenopathy Results & Data Vital Signs (Past 12 Hours) Vital Signs Temp Pulse Resp BP Pulse Ox 09/07/18 14:55 36.7 C 97 H 18 154/86 H 100 09/07/18 07:22 36.5 C 81 18 104/70 100 Laboratory Results Laboratory Results - last 24 hr 09/07/18 09/07/18 06:25 12:46 WBC 6.47 RBC 3.21 L Hgb 8.3 L 8.7 L Hct 26.3 L 27.2 L MCV 81.9 MCH 25.9 MCHC 31.6 L RDW Std Deviation 47.6 H RDW Coeff of Andrés 15.9 H Plt Count 353 MPV 10.5 H Immature Gran % (Auto) 1.2 Neut % (Auto) 60.3 Lymph % (Auto) 25.0 [place] % (Auto) 11.4 Eos % (Auto) 1.9 Baso % (Auto) 0.2 Immature Gran # (Auto) 0.08 H Neut # (Auto) 3.90 Lymph # (Auto) 1.62 [place] # (Auto) 0.74 H Eos # (Auto) 0.12 Baso # (Auto) 0.01 Medications Administered Current Inpatient Medications Acetaminophen (Tylenol) 650 mg PO Q4H PRN PRN Reason: pain/fever Stop: 10/04/18 09:20 Last Admin: 09/06/18 20:46 Dose: 650 mg Documented by: Al Hydrox/Mg Hydrox/Simethicone (Maalox) 15 ml PO Q4H PRN PRN Reason: Heartburn Stop: 10/04/18 21:42 Atorvastatin Calcium (Lipitor) 40 mg PO HS [facility] Stop: 10/04/18 20:59 Last Admin: 09/06/18 20:45 Dose: Not Given Documented by: Bisacodyl (Dulcolax) 10 mg [place] DAILY PRN PRN Reason: Constipation Stop: 10/04/18 21:42 Clonidine HCl (Catapress) 0.3 mg PO BID [facility] Stop: 10/04/18 09:20 Last Admin: 09/07/18 07:52 Dose: 0.3 mg Documented by: Diphenhydramine HCl (Benadryl) 25 mg IV Q8H PRN PRN Reason: Itching Stop: 10/04/18 21:42 Diphenhydramine HCl (Benadryl Capsule) 25 mg PO Q8H PRN PRN Reason: Itching Stop: 10/04/18 21:42 Docusate Sodium (Colace) 100 mg PO BID PRN PRN Reason: Constipation Stop: 10/04/18 09:20 Docusate Sodium (Colace) 100 mg PO BID [facility] Stop: 10/05/18 08:59 Last Admin: 09/07/18 07:50 Dose: 100 mg Documented by: Enalapril Maleate (Vasotec) 10 mg PO DAILY [facility] Stop: 10/04/18 09:20 Last Admin: 09/07/18 07:50 Dose: 10 mg Documented by: Magnesium Hydroxide (Milk Of Magnesia) 30 ml PO Q6H PRN PRN Reason: Constipation Stop: 10/04/18 21:42 Magnesium Oxide (Mag-Ox) 400 mg PO BID [facility] Stop: 10/04/18 09:20 Last Admin: 09/07/18 07:54 Dose: 400 mg Documented by: Mineral Oil (Kondremul) 30 ml PO BID [facility] Stop: 10/04/18 09:20 Last Admin: 09/07/18 07:54 Dose: 30 ml Documented by: Multivitamins (Multivitamin Tab) 1 tab PO QAM [facility] Stop: 10/05/18 08:59 Last Admin: 09/07/18 07:50 Dose: 1 tab Documented by: Naloxone HCl (Narcan) 0.1 mg IV UD PRN PRN Reason: Opioid Overdose Stop: 10/04/18 21:05 Naloxone HCl (Narcan) 0.1 mg IV Q5M PRN PRN Reason: Oversedation/Resp Depression Stop: 10/04/18 21:42 Nortriptyline HCl (Pamelor) 100 mg PO HS [facility] Stop: 10/04/18 20:59 Last Admin: 09/07/18 07:51 Dose: 100 mg Documented by: Ondansetron HCl (Zofran) 4 mg IV Q6H PRN PRN Reason: Nausea Stop: 10/04/18 09:20 Ondansetron HCl (Zofran) 4 mg IV Q6H PRN PRN Reason: Nausea And Vomiting Stop: 10/04/18 21:42 Last Admin: 09/04/18 22:29 Dose: 4 mg Documented by: Oxycodone HCl (Roxicodone Immediate Rel) 5 mg PO Q4 PRN PRN Reason: Pain Stop: 09/18/18 09:20 Perphenazine (Trilafon) 8 mg PO [facility] Stop: 10/04/18 20:59 Last Admin: 09/06/18 20:45 Dose: Not Given Documented by: Perphenazine (Trilafon) 4 mg PO [facility] Stop: 10/04/18 20:59 Last Admin: 09/06/18 20:45 Dose: Not Given Documented by: Sennosides (Senokot) 17.2 mg PO [facility] Stop: 10/05/18 20:59 Last Admin: 09/07/18 07:49 Dose: 17.2 mg Documented by: Sertraline HCl (Zoloft) 50 mg PO [facility] Stop: 10/04/18 20:59 Last Admin: 09/06/18 20:46 Dose: Not Given Documented by: Sertraline HCl (Zoloft) 100 mg PO [facility] Stop: 10/04/18 20:59 Last Admin: 09/06/18 20:46 Dose: Not Given Documented by: Tamsulosin HCl (Flomax) 0.4 mg PO [facility] Stop: 10/04/18 20:59 Last Admin: 09/06/18 20:46 Dose: 0.4 mg Documented by: Warfarin Sodium (Coumadin) 10 mg PO DAILY@1600 [facility] Stop: 10/05/18 15:59 Last Admin: 09/07/18 15:34 Dose: 10 mg Documented by: Warfarin Sodium (Coumadin) 2 mg PO DAILY@1600 [facility] Stop: 10/05/18 15:59 Last Admin: 09/07/18 15:34 Dose: 2 mg Documented by: (1) Hypertension Hypertension type: essential hypertension Qualified Code(s): I10 - Essential (primary) hypertension
[2018-09-07] MEDS: TAMSULOSIN HCL 0.4 MG CAP PO SCH (21:04)
[2018-09-07] MEDS: ACETAMINOPHEN 325 MG TAB PO PRN (21:04)
[2018-09-07] MEDS: SERTRALINE HCL 100 MG TABLET PO SCH (21:05)
[2018-09-07] MEDS: PERPHENAZINE 2 MG TABLET PO SCH ×2 (21:05)
[2018-09-07] MEDS: ATORVASTATIN 40 MG TAB PO SCH (21:05)
[2018-09-07] MEDS: SERTRALINE HCL 50 MG TABLET PO SCH (21:05)
[2018-09-08 06:49] LABS: Basophils # (auto) 0.01 K/uL (0-0.2); Basophils % (auto) 0.2 %; Eosinophils # (auto) 0.13 K/uL (0-0.5); Eosinophils % (auto) 2.1 %; Hematocrit (blood only) 25.2 % (42-52); Immature Granulocytes # (auto) 0.12 K/uL (0.00-0.02); Immature Granulocytes % (auto) 1.9 %; Lymphocytes # (auto) 1.69 K/uL (1.2-3.4); Lymphocytes % (auto) 26.9 %; Mean Corpuscular Hgb Conc 31.7 g/dL (32-36); Mean Corpuscular Volume 83.7 fL (80-100); Mean Platelet Volume 10.1 fL (7.4-10.4); Monocytes # (auto) 0.77 K/uL (0.11-0.59); Monocytes % (auto) 12.2 %; Neutrophils # (auto) 3.57 K/uL (1.4-6.5); Neutrophils % (auto) 56.7 %; Platelet Count 332 K/uL (130-400); RDW Coefficient of Variation 16.2 % (11.5-14.5); RDW Standard Deviation 49.5 fL (36.4-46.3); Red Blood Count 3.01 M/uL (4.7-6.1); White Blood Count 6.29 K/uL (4.8-10.8)
[2018-09-08 06:56] LABS: INR 1.3 (0.9-1.1)
[2018-09-08 07:13] LABS: Creatinine Clr Calc Pharmacy 131.6 ml/min; Est GFR (African American) 95.3; Est GFR (Non-African American) 82.2
[2018-09-08] MEDS: DOCUSATE SODIUM 100 MG CAP PO SCH (08:45)
[2018-09-08] MEDS: ENALAPRIL MALEATE 10 MG TAB PO SCH (08:45)
[2018-09-08] MEDS: MAGNESIUM OXIDE 400 MG TAB PO SCH (08:46)
[2018-09-08] MEDS: KONDREMUL 480ML PO SCH (08:46)
[2018-09-08] MEDS: MULTIVITAMIN TAB PO SCH (08:46)
--- NOTE | 2018-09-08 11:44 | Discharge Summary ---
Date of Service September 08, 2018 Admission HPI Per Admitting Provider Mera Hickman is a pleasant 48yo AA male, inmate at [facility] presenting with RLE pain. The patient states that he received a steroid injection in his back last Tuesday. On Tuesday he developed pain and swelling in his calf which progressed into Tuesday. He denies fevers/chills/nausea/vomiting/malaise. His pain is presently 7/10 located in his right calf. He has a non-healing wound on the medial portion of his calf. Also complaining of pain, numbness and tingling on the 3rd - 5th toe on his right foot. Patient denies trauma to the leg. No IVDU. No prior infection. ER Course: Vancomycin, Zosyn Admission Exam Per Admitting Provider General: obese male resting comfortably, NAD, non-toxic in appearance, AA&O x 4 Skin: warm, dry HEENT: NC/AT, PERRL, EOMI, anicteric sclera, conjunctiva without injection, external ear normal to inspection and nontender, nares patent, moist mucus membranes, dentition intact, no oropharyngeal lesions, neck supple, trachea midline, no LAD, no thyromegaly, no JVD Heart: +S1/S2, regular, no m/r/g Lungs: equal air entry bilaterally, no rales/rhonchi/wheezes Abd: +BS, soft, NT/ND, no masses/organomegaly/ascites Ext: warm, 2+ pulses in UE/LE bilaterally, no clubbing/cyanosis, thickened and shiny skin of bilateral shins, RLE with firm collection, tender to palpation, dressing in place over wound, c/d/i. Diminished sensation on 3-5th toes, strength intact Neuro: nonfocal, patient AA&O x 4, speech intact, no facial droop, moving all extremities on command with equal strength 5/5 Principal Diagnosis Spontaneous right leg hematoma on Lovenox Discharge Exam Constitutional WD/WN, vitals as above Eyes PERRL, conjunctivae normal, anicteric sclerae ENMT external ear and nose normal, oropharynx normal Neck trachea midline, no thyromegaly Respiratory normal respiratory effort, lungs clear to auscultation Cardiovascular RRR, no murmur, no edema Extremities: + calf tenderness (right calf) Gastrointestinal (Abdomen) normal bowel sounds, soft, nontender, no hepatosplenomegaly Musculoskeletal no cyanosis or clubbing, extremities motor strength 5/5 Extremities: + extremities abnormal to inspection (right calf swollen and tender , wrapped with DALI wrap) Skin no rashes, warm and dry Neurologic patellar DTR's 2+ bilat, sensation intact and PERRL, EOMI, accommodation nl, no face palsy, no dysarthria Psychiatric A+Ox3, euthymic affect Lymphatic no cervical or axillary lymphadenopathy Discharge Data Allergies Allergy/AdvReac Type Severity Reaction Status Date / Time No Known Allergies Allergy Unverified 09/04/18 01:53 Consultations 09/04/18 05:20 ED Decision to Admit Stat 09/04/18 06:41 Consult Orthopedic Surgery Routine 09/04/18 21:06 Consult Case Management - Discharge Planning Routine 09/04/18 21:45 Consult Case Management - Discharge Planning Routine Procedures Performed Operation Date: 09/04/18 10:30 Actual Procedures p Evacuation of Right Calf Hematoma(Right) - Abundio Bhakta MD Ordered Studies Laboratory Results - last 24 hr 09/07/18 09/08/18 09/08/18 12:46 06:31 06:31 WBC RBC Hgb 8.7 L Hct 27.2 L MCV MCH MCHC RDW Std Deviation RDW Coeff of Andrés Plt Count MPV Immature Gran % (Auto) Neut % (Auto) Lymph % (Auto) [place] % (Auto) Eos % (Auto) Baso % (Auto) Immature Gran # (Auto) Neut # (Auto) Lymph # (Auto) [place] # (Auto) Eos # (Auto) Baso # (Auto) PT 13.0 H INR 1.3 H Creatinine 1.07 Est Cr Clr Drug Dosing 131.6 Est GFR ( Amer) 95.3 Est GFR (Non-Af Amer) 82.2 09/08/18 06:31 WBC 6.29 RBC 3.01 L Hgb 8.0 L Hct 25.2 L MCV 83.7 MCH 26.6 MCHC 31.7 L RDW Std Deviation 49.5 H RDW Coeff of Andrés 16.2 H Plt Count 332 MPV 10.1 Immature Gran % (Auto) 1.9 Neut % (Auto) 56.7 Lymph % (Auto) 26.9 [place] % (Auto) 12.2 Eos % (Auto) 2.1 Baso % (Auto) 0.2 Immature Gran # (Auto) 0.12 H Neut # (Auto) 3.57 Lymph # (Auto) 1.69 [place] # (Auto) 0.77 H Eos # (Auto) 0.13 Baso # (Auto) 0.01 PT INR Creatinine Est Cr Clr Drug Dosing Est GFR ( Amer) Est GFR (Non-Af Amer) 09/04/18 00:59 US venous doppler LE RT Urgent 09/04/18 02:55 MR lower leg RT wo/w con Stat Hospital Course (1) Hematoma of right lower extremity: spontaneous, likely from Lovenox bridge off Coumadin and AVM in the leg evacuated no signs of infection back on Coumadin, INR is 1.3 this morning difficulty ambulating, will ask CM about rehab for inmates since he can ambulate a little he would not qualify for rehab d/c back to [facility], discharge instructions provided by Dr. Bhakta (2) Pyomyositis: OR on 09/04, evacuated large hematoma, no initial signs of infected fluid, sent for culture not pyomyositis and more likely just spontaneous hematoma causing swelling and pain less pain today, no fever d/w Dr. Bhakta, will observe through tomorrow stop Vanco and Zosyn today no growth on culture (blood and wound) (3) Chronic anticoagulation: Patient with history of DVT/PE, on chronic anticoagulation with Coumadin. INR = 1.9 on admission INR reversed with Vitamin K Coumadin resumed, INR is 1.3 avoid Lovenox in the future as he had spontaneous hematoma goal for INR would be 2.0-2.3, try to keep low with possibility of hematoma (4) History of CVA (cerebrovascular accident): Patient with remote history of CVA. -Continue Atorvastatin (5) Hypertension: Blood pressure well controlled at present -Continue Enalapril -Continue Clonidine -Continue to monitor (6) Schizophrenia: Patient oriented and appropriate. -Continue Perphenazine -Continue Sertraline -Continue Nortriptyline qHS (7) Hyperkalemia: resolved with fluids Total Time Total Time Spent Total Time Spent (In Minutes): 35 minutes Total Time Includes: Examination of the Patient, Discharge Planning, Medication Reconciliation and Communication With Other Providers (Dr. Bhakta) Discharge Plan Discharge Items [facility] Reason For Visit: hematoma Discharge Diagnosis: Hematoma, spontaneous due to Lovenox Condition: Good Discharge Goals: Decrease discomfort, Improve function and Increase independence Activity: Resume your previous activity Lifting: Gradually increase as tolerated Bathing: Keep incision dry Exercise/Sports: Gradually increase as tolerated Weightbearing Comment: right weight bear as tolerated Non-emergency contact: Primary Care Provider Call non-emergency contact if: you have any medication questions, your symptoms worsen, your pain is not controlled and you have a fever Follow-up/Referrals: Claudia JOHNSON [Primary Care Provider] - Abundio Bhakta MD [Surgeon] - 09/19/18 11:15 am Diet: Heart Healthy Addtl Provider Instructions: Medications: - OXYCODONE: take as needed for pain in right leg - FERROUS SULFATE: iron supplement, take twice a day for the next month to help rebuild iron stores and make new red blood cells Instructions from Dr Bhakta Weight bear as tolerated right lower extremity Use crutches or walker to assist with ambulation as needed. Ice to right lower extremity as needed for pain and swelling. Elevate right lower extremity above heart to relieve pain or swelling. Keep Dali bandage on right calf as compression dressing as needed. Encourage ankle range of motion and calf stretching as tolerated. Keep incision covered at all times with light dressing. May bathe/shower beginning , September 07, 2018. Do not scrub or soak incision. Pat incision dry. Reapply light dressings. [facility] follow up appointment Local wound care to wound right leg as per wound care nurse recommendations. Prescriptions: New oxycodone 5 mg Tablet 5 mg PO Q4 PRN (Reason: pain) 7 Days Qty: 10 RF: 0 ferrous sulfate 325 mg (65 mg iron) tablet 325 mg PO BID Qty: 60 RF: 0 Continued clonidine HCl 0.3 mg tablet 0.3 mg PO BID RF: 0 enalapril maleate 10 mg tablet 10 mg PO DAILY RF: 0 magnesium oxide 400 mg capsule 400 mg PO BID RF: 0 nortriptyline 50 mg capsule 100 mg PO HS RF: 0 perphenazine 4 mg tablet 4 mg PO HS RF: 0 sertraline [Zoloft] 100 mg tablet 100 mg PO HS RF: 0 tamsulosin 0.4 mg capsule 0.4 mg PO HS RF: 0 warfarin 10 mg tablet 10 mg PO QPM RF: 0 warfarin [Coumadin] 2 mg tablet 2 mg PO QPM RF: 0 atorvastatin 40 mg Tablet 40 mg PO HS RF: 0 sertraline 50 mg Tablet 50 mg PO HS RF: 0 mineral oil [Mineral Oil Heavy] Oil 30 ml PO BID RF: 0 perphenazine 8 mg Tablet 8 mg PO HS RF: 0 Discontinued sulfamethoxazole-trimethoprim [Bactrim DS] 800-160 mg Tablet 1 tab PO BID RF: 0 Stand-Alone Forms: [facility] Discharge Orders: Discharge Order (Routine); Ordered 09/08/18 Ordered By: Yuan Pace Admission Data Admit Date/Time: 09/04/18 06:13 Attending Provider: Yuan Pace Admit Provider: Kayla Lewis Primary Care Provider: Claudia JOHNSON Other Providers: Kayla Lewis ; Zi Lewis ; Andre Meeks ; Foster Elmore ; Adolfo Gutierrez ; Foster Mitchell ; Abundio Morgan V Service: Medical
--- NOTE | 2018-09-08 13:21 | Orthopedic Progress Note ---
Date of Service September 08, 2018 Assessment & Plan (1) Hematoma of right lower extremity: Cultures are no growth. Overall doing better. Continue PT. Continue Coumadin. Okay from ortho standpoint for discharge to [facility] today. Dressings changed. Discharge instructions provided. Follow up with Dr. Bhakta [facility] as instructed. Subjective Patient resting in bed, no complaints of significant pain, still with difficulty putting foot flat without pain in his calf. Physical Exam Physical Exam: Seen and evaluated by Dr. Bhakta. Dressings changed today. Incision clean, dry, intact. No active drainage. Venous stasis ulcer with Aquacel in place (changed today). Minimal distal edema right foot. Distal pulses intact. Cap refill brisk, stiffnes in right ankle with dorsiflexion. Results & Data Vital Signs (Past 12 Hours) Vital Signs Temp Pulse Resp BP Pulse Ox 09/08/18 06:49 36.5 C 72 18 122/76 99 Laboratory Results 09/08/18 09/08/18 09/08/18 Range/Units 06:31 06:31 06:31 WBC 6.29 (4.8-10.8) K/uL RBC 3.01 L (4.7-6.1) M/uL Hgb 8.0 L (14.0-18.0) g/dL Hct 25.2 L (42-52) % MCV 83.7 (80-100) fL MCH 26.6 (25-34) pg MCHC 31.7 L (32-36) g/dL RDW Std Deviation 49.5 H (36.4-46.3) fL RDW Coeff of Andrés 16.2 H (11.5-14.5) % Plt Count 332 (130-400) K/uL MPV 10.1 (7.4-10.4) fL Immature Gran % (Auto) 1.9 % Neut % (Auto) 56.7 % Lymph % (Auto) 26.9 % [place] % (Auto) 12.2 % Eos % (Auto) 2.1 % Baso % (Auto) 0.2 % Immature Gran # (Auto) 0.12 H (0.00-0.02) K/uL Neut # (Auto) 3.57 (1.4-6.5) K/uL Lymph # (Auto) 1.69 (1.2-3.4) K/uL [place] # (Auto) 0.77 H (0.11-0.59) K/uL Eos # (Auto) 0.13 (0-0.5) K/uL Baso # (Auto) 0.01 (0-0.2) K/uL PT 13.0 H (9.0-12.0) Seconds INR 1.3 H (0.9-1.1) Creatinine 1.07 (0.6-1.4) mg/dl Est Cr Clr Drug Dosing 131.6 ml/min Est GFR ( Amer) 95.3 Est GFR (Non-Af Amer) 82.2
== END 2018-09-08 16:28 | DRG 300 ==
LOC: ED 00:20 → SUATTDRO 06:13 → 3N 06:13